=== PATIENT | female | born 1955 | race Caucasian/White ===

== ENCOUNTER → 2016-09-28 | Outpatient (CLI) | payer BC ==
--- NOTE | 2016-09-29 09:40 | MM ---
Reason for exam: screening (asymptomatic). Last mammogram was performed 1 year ago. History: Patient is postmenopausal. Benign stereotactic core biopsy of the right breast, March 10, 2002. Core biopsy of the right breast. Excisional biopsy of the left breast. Excisional biopsy of the right breast. Physical Findings: A clinical breast exam by your physician is recommended on an annual basis and results should be correlated with mammographic findings. MG 3D Screening Mammo W/Cad Bilateral CC and MLO view(s) were taken. Prior study comparison: September 17, 2015, bilateral MG 3d screening mammo w/cad. August 20, 2014, bilateral MG screening mammo w CAD. The breast tissue is heterogeneously dense. This may lower the sensitivity of mammography. Finding: There are new grouped/clustered calcifications in the lower outer quadrant of the right breast. ASSESSMENT: Incomplete: need additional imaging evaluation, BI-RAD 0 RECOMMENDATION: Special view mammogram of the right breast. [facility] will attempt to contact patient to return for supplemental views.
== END | disposition home or self-care (01) ==
LOC: RADMAMWWP 07:54
PROVIDERS: ATTEND Internal Medicine Geriatric Medicine
DX: Z12.31 Encounter for screening mammogram for malignant neoplasm of breast (principal)
CPT/HCPCS: 77063; G0202

== ENCOUNTER → 2016-10-06 | Outpatient (CLI) | payer BC ==
--- NOTE | 2016-10-06 14:33 | MM ---
Reason for exam: additional evaluation requested from abnormal screening. Last mammogram was performed less than 1 month ago. History: Patient is postmenopausal. Benign stereotactic core biopsy of the right breast, March 10, 2002. Core biopsy of the right breast. Excisional biopsy of the left breast. Excisional biopsy of the right breast. Physical Findings: Nurse did not find any significant physical abnormalities on exam. MG 3D Work Up W/Cad RT LM, spot compression CC, and spot compression LM view(s) were taken of the right breast. Prior study comparison: September 28, 2016, bilateral MG 3d screening mammo w/cad. September 17, 2015, bilateral MG 3d screening mammo w/cad. August 20, 2014, bilateral MG screening mammo w CAD. The breast tissue is heterogeneously dense. This may lower the sensitivity of mammography. Finding: There are persistent, new grouped/clustered calcifications in the lower outer quadrant of the right breast. These results were verbally communicated with the patient and result sheet given to the patient on 10/06/16. ASSESSMENT: Suspicious, BI-RAD 4 RECOMMENDATION: Stereotactic core biopsy of the right breast. Called Dr. Nino with mammographic findings and has scheduled an appointment for the patient for 10/10/16 at 4:[address] Vazquez. PRELIMINARY REPORT CALLED AND FAXED TO DR. VAZQUEZ ON 10/06/16 AT 300/TP.
== END | disposition home or self-care (01) ==
LOC: RADMAMWWP 13:27
PROVIDERS: ATTEND Internal Medicine Geriatric Medicine
DX: R92.8 Other abnormal and inconclusive findings on diagnostic imaging of breast (principal)
CPT/HCPCS: G0206; G0279

== ENCOUNTER → 2016-10-17 | Day surgery (SDC) | payer BC ==
[~2016-10-17] MED LIST: BACITRACIN OINT 1 EACH PACKET TOPICAL ONE; LIDOCAINE 1% INJ 10MG/ML (20 ML MDV) ONE; LIDOCAINE 1%-EPI 1:100,000 20 ML VIAL ONE; SODIUM BICARB 4% 5 ML VIAL (0.48 MEQ/ML) ONE
--- NOTE | 2016-10-17 15:30 | MM ---
EXAMINATION TYPE: MG stereo VAD BX RT DATE OF EXAM: 10/17/2016 3:08 PM COMPARISON: Prior mammogram October 06, 2016 and older mammograms. CLINICAL HISTORY: Abnormal mammogram, suspicious group of calcifications TECHNIQUE: Stereotactic guided core biopsy of right breast with clip placement. FINDINGS: The procedure of stereotactic guided core biopsy was explained to the patient. Benefits, alternatives, and risks were discussed. An informed consent was then obtained. The shortness pathway for biopsy was chosen. Shortness pathway was inferior approach. I performed the localization then performed the procedure . Overlying skin is cleansed with sterile alcohol. Lidocaine is used as anesthetic into the skin and superficial tissue. Lidocaine with epinephrine is used as anesthetic into the deeper tissue A vacuum assisted biopsy gun was used to obtain multiple core samples. The patient tolerated the procedure well without any immediate complication. The patient was kept in the radiology department for short stay after the procedure and then discharged home in stable condition. Targeted calcifications are identified in specimen mammogram. Post biopsy mammogram shows the clip to appear in satisfactory position relative to the targeted area of concern on the preprocedure images. IMPRESSION: SUCCESSFUL, UNCOMPLICATED STEREOTACTIC GUIDED CORE BIOPSY OF AREA OF CONCERN IN THE RIGHT BREAST, FULL PATHOLOGY RESULTS TO FOLLOW. Low to intermediate index of suspicion noted at time of procedure. Pathology Results: High Risk BREAST, RIGHT, CORE BIOPSY: HYALINIZED CALCIFIED FIBROADENOMA/FIBROADENOMATOID HYPERPLASIA AND FIBROCYSTIC CHANGES. FEATURES SUSPICIOUS FOR FOCAL ATYPICAL LOBULAR HYPERPLASIA (ALH), SEE NOTE. Recommendation Surgical consult of the right breast. CHUCKIE
== END ==
LOC: RADMAMWWP 13:44
PROVIDERS: ATTEND Surgery
DX: D24.1 Benign neoplasm of right breast (principal); N64.89 Other specified disorders of breast; R92.8 Other abnormal and inconclusive findings on diagnostic imaging of breast; Z88.0 Allergy status to penicillin; Z88.2 Allergy status to sulfonamides
CPT/HCPCS: 88305; 19081; A4648; J2001

== ENCOUNTER 2016-11-06 07:59 | Day surgery (SDC) | payer BC ==
[2016-11-01 09:08] VITALS: BMI 23.5
[~2016-11-06 07:59] MED LIST changes: -BACITRACIN OINT 1 EACH PACKET TOPICAL ONE; +DEXAMETHASONE SOD PHOSPHATE 10 MG/ML 1 ML VIAL IV ONE; +HYDROmorphone 1 MG/ML 1 ML SYRINGE IVP PRN; +LACTATED RINGERS 1,000 ML IV SCH; +LIDOCAINE 1% 20 ML VIAL (10MG/ML) FOR IV START INTRADERMA PRN; -LIDOCAINE 1% INJ 10MG/ML (20 ML MDV) ONE; -LIDOCAINE 1%-EPI 1:100,000 20 ML VIAL ONE; +MIDAZOLAM 2 MG/2 ML VIAL IV PRN; +ONDANSETRON 4 MG/2 ML VIAL IVP ONE; +Pre Op ABX Message 1 EACH MISC MISCELLANE ONE; +SCOPOLAMINE 1.5MG/72HR PATCH TRANSDERM ONE; -SODIUM BICARB 4% 5 ML VIAL (0.48 MEQ/ML) ONE
[2016-11-06 08:24] VITALS: RESP 16
[2016-11-06] MEDS ORDERED: LIDOCAINE 1% 20 ML VIAL (10MG/ML) FOR IV START INTRADERMA ONE (08:33)
[2016-11-06] MEDS ORDERED: LIDOCAINE 1% INJ 10MG/ML (20 ML MDV) SQ ONE (09:21)
[2016-11-06] MEDS ORDERED: SODIUM BICARB 4% 5 ML VIAL (0.48 MEQ/ML) MISCELLANE ONE (09:21)
[2016-11-06 09:45] VITALS: TEMP 98.3
[2016-11-06] MEDS ORDERED: KETAMINE 10 MG/ML 20 ML VIAL ONE (11:59)
[2016-11-06] MEDS ORDERED: MIDAZOLAM 2 MG/2 ML VIAL ONE (11:59)
[2016-11-06] MEDS ORDERED: fentaNYL (PF) 50 MCG/ML 2 ML AMP ONE (11:59)
[2016-11-06] MEDS ORDERED: PROPOFOL 10 MG/ML 20 ML VIAL IV ONE (11:59)
[2016-11-06] MEDS ORDERED: LIDOCAINE 1% INJ 10MG/ML (20 ML MDV) ONE (11:59)
[2016-11-06] MEDS ORDERED: BUPIVACAINE (PF) 0.5% 30 ML VIAL SQ ONE ×2 (12:13)
[2016-11-06] MEDS ORDERED: LACTATED RINGERS 1,000 ML IV ONE ×2 (12:30)
--- NOTE | 2016-11-06 12:57 | P.OP ---
Date of Procedure: 11/06/16 Preoperative Diagnosis: Atypical Lobular Hyperplasia Right Breast Postoperative Diagnosis: Atypical lobular hyperplasia of the right breast Procedure(s) Performed: Right breast biopsy with needle localization Anesthesia: MAC, local Surgeon: Anselmo Duncan Estimated Blood Loss (ml): 20 Pathology: other (Rt breast bx) Condition: stable Disposition: same day Indications for Procedure: The patient is a 61-year-old white female was found to have a mammographic abnormality in the right breast in the lower outer quadrant. Stereotactic core biopsy revealed this to be a hyalinized calcified fibroadenoma with the features suspicious for focal atypical lobular hyperplasia confirmed the by evaluation at the tertiary center. Wide excision of this area with needle localization was recommended and informed consent was obtained Operative Findings: With the patient supine the right breast and chest wall were prepped with Betadine and draped. Local anesthetic Marcaine 0.5% plain was infiltrated just above the wire insertion site around the 5 o'clock position in the transverse incision was made. The wire was delivered out of the wound. Wide excision of the breast tissue were then accomplished around the wire and. The wound was irrigated hemostasis secured with 4-0 Vicryl suture ligature and the electrocautery. The field was dry at the end of procedure after being irrigated. Closure was then achieved with interrupted 4-0 Vicryl for the subcutaneous tissues and 4-0 Monocryl subcuticular suture and Steri-Strips for the skin. Dressing was applied. All counts were correct. Description of Procedure: Specimen mammography confirmed the abnormality within the specimen. Procedure otherwise as described above.
[2016-11-06 13:32] VITALS: BP 119/59; PULSE 50
--- NOTE | 2016-11-06 15:41 | MM ---
EXAMINATION TYPE: MG pre op needle loc RT, MG surgical specimen RT DATE OF EXAM: 11/06/2016 10:07 AM COMPARISON: NONE CLINICAL HISTORY: High risk lesion TECHNIQUE: Needle localization with wire placement and surgical excision of area of concern in the right breast. FINDINGS: The procedure of needle localization with wire placement and than surgical excision was explained to the patient. Benefits, alternatives, and risks were discussed. An informed consent was then obtained. The shortest pathway for procedure was chosen. The overlying skin was prepped and draped in usual sterile fashion. Lidocaine buffered with bicarbonate was used as anesthetic into the skin and subcutaneous tissue up to the level of area of concern. A 7 cm needle was used. Subsequent 90 degrees mammogram show the needle to be in satisfactory position relative to the targeted area. At this point, wire was placed and the needle was withdrawn. The wire was fixed to patient's skin. Images were marked for surgeon. The patient tolerated the procedure well without any immediate complication. The patient was kept in the radiology department for short stay after the procedure and then taken to surgery for surgical excision. Gated microclip and wire are identified in specimen mammogram. The patient was kept in hospital for short stay after the procedure and then discharged home in stable condition. IMPRESSION: Successful, uncomplicated needle localization with wire placement and surgical excision of microclip in the right breast, full pathology results to follow. Pathology Results: Benign BREAST, RIGHT, WIRE GUIDED LOCALIZATION AND RESECTION: BIOPSY SITE CHANGE. FIBROCYSTIC CHANGE (STROMAL FIBROSIS, CYST FORMATION, ADENOSIS AND DUCT HYPERPLASIA). Recommendation Follow up mammogram of the right breast in 6 months. CHUCKIE
== END 2016-11-06 13:52 | disposition home or self-care (01) ==
LOC: OR 07:59
PROVIDERS: ATTEND Surgery
DX: N60.11 Diffuse cystic mastopathy of right breast (principal); N60.21 Fibroadenosis of right breast; N60.91 Unspecified benign mammary dysplasia of right breast; R92.8 Other abnormal and inconclusive findings on diagnostic imaging of breast; D24.1 Benign neoplasm of right breast; E07.9 Disorder of thyroid, unspecified; G25.81 Restless legs syndrome; F32.9 Major depressive disorder, single episode, unspecified; Z79.891 Long term (current) use of opiate analgesic; Z79.899 Other long term (current) drug therapy; Z88.0 Allergy status to penicillin; Z88.2 Allergy status to sulfonamides
CPT/HCPCS: 19125; 88342; 88307; 88341; 76098; 19281; J2250; J1100; J2405; J2001; J3010; J2704

== ENCOUNTER → 2017-05-17 | Outpatient (CLI) | payer BC ==
--- NOTE | 2017-05-17 10:28 | MM ---
Reason for exam: screening (asymptomatic). Last mammogram was performed 7 months ago. History: Patient is postmenopausal and has history of high-risk lesion on a previous biopsy at age 61. Family history of breast cancer in maternal cousin at age 60. Benign MG pre op needle loc RT of the right breast, November 06, 2016. High risk MG stereo VAD BX RT of the right breast, October 17, 2016. Benign stereotactic core biopsy of the right breast, March 10, 2002. Core biopsy of the right breast. Excisional biopsy of the left breast. Excisional biopsy of the right breast. Physical Findings: A clinical breast exam by your physician is recommended on an annual basis and results should be correlated with mammographic findings. MG 3D Diag Mammo W/Cad RT CC, MLO, and ML view(s) were taken of the right breast. Prior study comparison: October 06, 2016, right breast MG 3d work up w/cad RT. September 28, 2016, bilateral MG 3d screening mammo w/cad. The breast tissue is heterogeneously dense. This may lower the sensitivity of mammography. Finding: Architectural distortion in the lower quadrant of the right breast consistent with internal excisional biopsy. Previous mammotome biopsy in the right breast. There is no discrete abnormality. These results were verbally communicated with the patient and result sheet given to the patient on 05/17/17. ASSESSMENT: Benign, BI-RAD 2 RECOMMENDATION: Follow-up diagnostic mammogram of both breasts in 5 months. Back on schedule for September 2017.
== END | disposition home or self-care (01) ==
LOC: RADMAMWWP 08:44
PROVIDERS: ATTEND Surgery
DX: R92.8 Other abnormal and inconclusive findings on diagnostic imaging of breast (principal)
CPT/HCPCS: G0206; G0279

== ENCOUNTER → 2017-10-23 | Outpatient (CLI) | payer BC ==
--- NOTE | 2017-10-23 16:27 | BD ---
EXAMINATION TYPE: MG DEXA axial skeleton. DATE OF EXAM: 10/23/2017 COMPARISON: 08/20/2014 CLINICAL HISTORY: 62-year-old female age-related osteoporosis Height: 66 IN Weight: 151 LBS FRAX RISK QUESTIONS: Alcohol (3 or more units per day): NO Family History (Parent hip fracture): NO Glucocorticoids (More than 3mos): NO (Ex: prednisone, prednisolone, methylprednisolone, dexamethasone, and hydrocortisone). History of Fracture in Adulthood: NO Secondary Osteoporosis: 1. Type 1 Diabetes: NO 2. Hyperthyroidism: NO 3. Menopause before 45: NO AGE 49 4. Malnutrition: NO 5. Chronic liver disease: NO Rheumatoid Arthritis: NO Current Tobacco Use: NO RISK FACTORS HISTORY OF: Surgery to Hip(left): YES When: 2013 Family History of Osteoporosis: YES MOTHER Active: YES Postmenopausal woman: AGE 49 MEDICATIONS: Thyroid Medications: YES Which medication: Levothyroxine How Lon + YEARS Additional Medications: LEVOTHYROXINE, ZOLOFT, MULTI VIT, VIT B, RESTLESS LEGS MEDICINE EXAM MEASUREMENTS: Bone mineral densitometry was performed using the [employer] System. PT HAS A BELLY BUTTON RING THAT THE SKIN HAS GROWN AROUND. PT CANNOT REMOVE IT. Bone mineral density as measured about the Lumbar spine is: ----- L1-L4(G/cm2): 1.166 T Score Values are as follows: ----- L2: -1.1 ----- L3: 0.1 ----- L4: 0.1 ----- L1-L4: -0.1 Bone mineral density has: Decreased -0.4% since study of: 08/20/2014 PT HAD LEFT HIP REPLACEMENT IN 2013 Bone mineral density about the R hip (g/cm2): 0.851 T Score values are as follows: -----R Neck: -1.3 -----R Total: -0.8 Bone mineral density has: Increased 2.8% since study of: 08/20/2014 IMPRESSION: Osteopenia (T Score between -2.5 and -1). There is slightly increased risk of fracture and the patient may be considered for treatment. Re-Screen 2-5 years. NOTE: T-SCORE=SD OF THE YOUNG ADULT MEAN.
--- NOTE | 2017-10-24 10:00 | MM ---
Reason for exam: screening (asymptomatic). Last mammogram was performed 5 months ago. History: Patient is postmenopausal and has history of high-risk lesion on a previous biopsy at age 61. Family history of breast cancer in maternal cousin at age 60. Benign MG pre op needle loc RT of the right breast, November 06, 2016. High risk MG stereo VAD BX RT of the right breast, October 17, 2016. Benign stereotactic core biopsy of the right breast, March 10, 2002. Core biopsy of the right breast. Excisional biopsy of the left breast. Excisional biopsy of the right breast. Physical Findings: A clinical breast exam by your physician is recommended on an annual basis and results should be correlated with mammographic findings. MG 3D Screening Mammo W/Cad Bilateral CC and MLO view(s) were taken. Prior study comparison: May 17, 2017, right breast MG 3d diag mammo w/cad RT. October 06, 2016, right breast MG 3d work up w/cad RT. The breast tissue is heterogeneously dense. This may lower the sensitivity of mammography. Previous mammotome biopsy in the right breast. There is no discrete abnormality. ASSESSMENT: Benign, BI-RAD 2 RECOMMENDATION: Routine screening mammogram of both breasts in 1 year.
== END | disposition home or self-care (01) ==
LOC: RADMAMWWP 08:02
PROVIDERS: ATTEND Nurse Practitioner Family
DX: Z12.31 Encounter for screening mammogram for malignant neoplasm of breast (principal); M85.80 Other specified disorders of bone density and structure, unspecified site
CPT/HCPCS: 77063; 77067; 77080

== ENCOUNTER → 2018-10-24 | Outpatient (CLI) | payer BC ==
--- NOTE | 2018-10-25 10:56 | MM ---
Reason for exam: screening (asymptomatic). Last mammogram was performed 1 year ago. History: Patient is postmenopausal and has history of high-risk lesion on a previous biopsy at age 61. Family history of breast cancer in maternal cousin at age 60. Benign MG pre op needle loc RT of the right breast, November 06, 2016. High risk MG stereo VAD BX RT of the right breast, October 17, 2016. Benign stereotactic core biopsy of the right breast, March 10, 2002. Core biopsy of the right breast. Excisional biopsy of the left breast. Excisional biopsy of the right breast. Physical Findings: A clinical breast exam by your physician is recommended on an annual basis and results should be correlated with mammographic findings. MG 3D Screening Mammo W/Cad Bilateral CC and MLO view(s) were taken. Prior study comparison: October 23, 2017, bilateral MG 3d screening mammo w/cad. May 17, 2017, right breast MG 3d diag mammo w/cad RT. The breast tissue is heterogeneously dense. This may lower the sensitivity of mammography. No suspicious abnormality. Right biopsy marker noted. No significant changes when compared with prior studies. ASSESSMENT: Negative, BI-RAD 1 RECOMMENDATION: Routine screening mammogram of both breasts in 1 year.
== END | disposition home or self-care (01) ==
LOC: RADMAMWWP 08:01
PROVIDERS: ATTEND Internal Medicine Geriatric Medicine
DX: Z12.31 Encounter for screening mammogram for malignant neoplasm of breast (principal)
CPT/HCPCS: 77063; 77067

== ENCOUNTER 2019-04-15 12:17 | Emergency (ER) | payer BC ==
[2019-04-15] MEDS ORDERED: FAMOTIDINE 20 MG/2 ML VIAL IV STA (12:24)
[2019-04-15] MEDS ORDERED: SODIUM CHLORIDE 0.9% 1,000 ML IV ONE (12:24)
[2019-04-15] MEDS ORDERED: methylPREDNISolone SOD SUCCI 125 MG/2 ML VIAL IV STA (12:24)
[2019-04-15] MEDS ORDERED: diphenhydrAMINE 50 MG/ML 1 ML VIAL IVP STA (12:24)
--- NOTE | 2019-04-15 12:40 | ED ---
Allergic Reaction HPI - General Chief complaint: Allergic Reaction Stated complaint: multiple bee stings Time Seen by Provider: 04/15/19 12:23 Source: patient, RN notes reviewed Mode of arrival: ambulatory Limitations: no limitations - History of Present Illness Initial Comments: 63-year-old female presents emergency Department chief complaint ALLERGIC reaction. Patient states she stepped on a ground be hypertensive and states that she was stung multiple times. Patient states she felt rushed of 1 sensation over states that she feels some abnormal sensation in her throat and feels slightly short of breath. Patient denies any diarrhea ALLERGIC reactions of this nature. Denies taking any medications other than putting topical Benadryl on. - Related Data Home Medications Medication Instructions Recorded Confirmed Levothyroxine Sodium [Synthroid] 100 mcg PO DAILY 05/20/14 04/15/19 Sertraline HCl [Zoloft] 200 mg PO QAM 05/20/14 04/15/19 rOPINIRole HCL [Requip] 0.5 mg PO HS 08/25/16 04/15/19 Calcium Carbonate [Calcium] 600 mg PO DAILY 04/15/19 04/15/19 Cholecalciferol [Vitamin D3 (25 1,000 unit PO DAILY 04/15/19 04/15/19 Mcg = 1000 Iu)] L.acidoph,Paracasei, B.lactis 1 cap PO DAILY 04/15/19 04/15/19 [Probiotic] Multivitamins, Thera [Multivitamin 1 tab PO DAILY 04/15/19 04/15/19 (formulary)] Vit A/Vit C/Vit E/Zinc/Copper 1 cap PO DAILY 04/15/19 04/15/19 [ICAPS SOFTGEL] Vitamin B Complex 1 cap PO DAILY 04/15/19 04/15/19 Allergies Allergy/AdvReac Type Severity Reaction Status Date / Time Penicillins Allergy Dyspnea Verified 04/15/19 12:48 Sulfa (Sulfonamide Allergy Dyspnea Verified 04/15/19 12:48 Antibiotics) Review of Systems ROS Statement: Those systems with pertinent positive or pertinent negative responses have been documented in the HPI. ROS Other: All systems not noted in ROS Statement are negative. Past Medical History Past Medical History: Asthma, Thyroid Disorder History of Any Multi-Drug Resistant Organisms: None Reported Past Surgical History: Breast Surgery, Joint Replacement Additional Past Surgical History / Comment(s): left hip replacement; biopsy rt breast, colonoscopy Past Anesthesia/Blood Transfusion Reactions: Postoperative Nausea & Vomiting (PONV) Past Psychological History: Depression Smoking Status: Never smoker - Past Family History Mother Family Medical History: Deep Vein Thrombosis (DVT) General Exam Limitations: no limitations General appearance: alert, in no apparent distress Head exam: Present: atraumatic, normocephalic, normal inspection Eye exam: Present: normal appearance, PERRL, EOMI. Absent: scleral icterus, conjunctival injection, periorbital swelling ENT exam: Present: normal exam, normal oropharynx, mucous membranes moist, TM's normal bilaterally, normal external ear exam Neck exam: Present: normal inspection, full ROM. Absent: tenderness, meningismus, lymphadenopathy Respiratory exam: Present: normal lung sounds bilaterally. Absent: respiratory distress, wheezes, rales, rhonchi, stridor Cardiovascular Exam: Present: regular rate, normal rhythm, normal heart sounds. Absent: systolic murmur, diastolic murmur, rubs, gallop, clicks GI/Abdominal exam: Present: soft, normal bowel sounds. Absent: distended, tenderness, guarding, rebound, rigid Neurological exam: Present: alert, oriented X3, CN II-XII intact Skin exam: Present: warm, dry, intact, normal color. Absent: rash Course Vital Signs 04/15/19 04/15/19 04/15/19 12:19 12:38 13:20 Temperature 97.4 F L Pulse Rate 88 76 82 Respiratory 16 18 20 Rate Blood Pressure 154/76 149/67 O2 Sat by Pulse 97 93 L 95 Oximetry 04/15/19 04/15/19 04/15/19 13:24 13:50 14:00 Temperature Pulse Rate 61 58 L Respiratory 20 Rate Blood Pressure O2 Sat by Pulse Oximetry 04/15/19 14:03 Temperature Pulse Rate 61 Respiratory 18 Rate Blood Pressure 112/60 O2 Sat by Pulse 97 Oximetry - Reevaluation(s) Reevaluation #1: 04/15/19 14:43 Patient reevaluated resting comfortably with no signs or symptoms ALLERGIC reaction or difficult to. No deformity swelling. Medical Decision Making - Medical Decision Making 63-year-old female presented from for ALLERGIC reaction. Patient had multiple bee stings. Patient was given site metal Benadryl Pepcid and DuoNeb treatment. Symptoms have resolved. She has been observed for 2 and half hours emergency from with no return of symptoms. Patient has prednisone at home she is advised to continue Benadryl and return for any worsening symptoms. Disposition Clinical Impression: Allergic reaction to insect sting Disposition: HOME SELF-CARE Condition: Stable Instructions (If sedation given, give patient instructions): General Allergic Reaction (ED) Additional Instructions: Please return to the Emergency Department if symptoms worsen or any other concerns. Continue Benadryl every 6 hours as directed. Is patient prescribed a controlled substance at d/c from ED?: No Referrals: Mk Nino MD [Primary Care Provider] - 1-2 days Time of Disposition: 14:44
[2019-04-15] MEDS ORDERED: IPRATROPIUM-ALBUTEROL 3 ML NEB INHALATION STA (13:19)
[2019-04-15] MEDS ORDERED: ONDANSETRON 4 MG/2 ML VIAL IVP STA (13:50)
[2019-04-15 14:05] VITALS: RESP 18
[2019-04-15 15:26] VITALS: BP 127/68; PULSE 76; TEMP 98.2
== END 2019-04-15 15:20 | disposition home or self-care (01) ==
LOC: EC 12:17
DX: T63.441A Toxic effect of venom of bees, accidental (unintentional), initial encounter (principal); F32.9 Major depressive disorder, single episode, unspecified; E07.9 Disorder of thyroid, unspecified; Z79.890 Hormone replacement therapy; Z79.899 Other long term (current) drug therapy; Z88.0 Allergy status to penicillin; Z88.2 Allergy status to sulfonamides; Z96.642 Presence of left artificial hip joint
CPT/HCPCS: 94640; 99283; 96374; 96375 ×3; 96361; J1200; J2930; J2405

== ENCOUNTER → 2019-10-30 | Outpatient (CLI) | payer BC ==
--- NOTE | 2019-10-31 14:20 | MM ---
Reason for exam: screening (asymptomatic). Last mammogram was performed 1 year ago. History: Patient is postmenopausal and has history of high-risk lesion on a previous biopsy at age 61. Family history of breast cancer in maternal cousin at age 60. Benign MG pre op needle loc RT of the right breast, November 06, 2016. High risk MG stereo VAD BX RT of the right breast, October 17, 2016. Benign stereotactic core biopsy of the right breast, March 10, 2002. Core biopsy of the right breast. Excisional biopsy of the left breast. Excisional biopsy of the right breast. Physical Findings: A clinical breast exam by your physician is recommended on an annual basis and results should be correlated with mammographic findings. MG 3D Screening Mammo W/Cad Bilateral CC and MLO view(s) were taken. XCCL view(s) were taken of the left breast. Prior study comparison: October 24, 2018, bilateral MG 3d screening mammo w/cad. October 23, 2017, bilateral MG 3d screening mammo w/cad. The breast tissue is heterogeneously dense. This may lower the sensitivity of mammography. No suspicious abnormality. Right biopsy marker noted. No significant changes when compared with prior studies. ASSESSMENT: Negative, BI-RAD 1 RECOMMENDATION: Routine screening mammogram of both breasts in 1 year.
== END | disposition home or self-care (01) ==
LOC: RADMAMWWP 09:50
PROVIDERS: ATTEND Internal Medicine Geriatric Medicine
DX: Z12.31 Encounter for screening mammogram for malignant neoplasm of breast (principal)
CPT/HCPCS: 77063; 77067

== ENCOUNTER 2020-04-26 16:29 | Emergency (ER) | payer BC ==
[2020-04-26] MEDS ORDERED: SODIUM CHLORIDE 0.9% 1,000 ML IV STA (17:41)
[2020-04-26] MEDS ORDERED: FAMOTIDINE 20 MG/2 ML VIAL IV STA (17:42)
[2020-04-26 18:21] LABS: Basophils % (A) 1 %; Eosinophils # (A) 0.3 k/uL (0-0.7); Eosinophils % (A) 3 %; HCT 40.8 % (34.0-46.0); Lymphocytes # (A) 2.2 k/uL (1.0-4.8); Lymphocytes % (A) 30 %; MCH 28.8 pg (25.0-35.0); MCHC 31.9 g/dL (31.0-37.0); MCV 90.3 fL (80.0-100.0); Mean Platelet Volume 7.1; Monocytes # (A) 0.4 k/uL (0-1.0); Monocytes % (A) 6 %; Neutrophils # (A) 4.3 k/uL (1.3-7.7); Neutrophils % (A) 58 %; Platelet Count 207 k/uL (150-450); RBC 4.52 m/uL (3.80-5.40); RDW 13.5 % (11.5-15.5); WBC 7.3 k/uL (3.8-10.6)
[2020-04-26 18:38] LABS: ALT 46 U/L (4-34); AST 45 U/L (14-36); African American GFR (CKD) >90 (>60 ml/min/1.73 sqM); Alkaline Phosphatase 174 U/L (38-126); Amylase 51 U/L (30-110); Anion Gap 4 mmol/L; Blood Urea Nitrogen 23 mg/dL (7-17); Calcium 9.3 mg/dL (8.4-10.2); Carbon Dioxide 28 mmol/L (22-30); Chloride 104 mmol/L (98-107); Glucose 78 mg/dL (74-99); Non-African American GFR(CKD) >90 (>60 ml/min/1.73 sqM); Potassium 3.9 mmol/L (3.5-5.1); Sodium 136 mmol/L (137-145); Total Bilirubin 0.9 mg/dL (0.2-1.3); Total Protein 6.8 g/dL (6.3-8.2)
[2020-04-26 18:52] LABS: Appearance,Urine Clear (Clear); Bilirubin,Urine Negative (Negative); Blood,Urine Negative (Negative); Color,Urine Yellow; Glucose,Urine (UA) Negative (Negative); Ketones,Urine Negative (Negative); Leukocyte Esterase,Urine Large (Negative); Mucus,Urine Occasional /hpf; Nitrite,Urine Negative (Negative); PH, Urine 5.5 (5.0-8.0); Protein,Urine Negative (Negative); RBC,Urine 3 /hpf (0-5); Specific Gravity,Urine 1.028 (1.001-1.035); Squamous Epithelial Cell,Urine 1 /hpf (0-4); Urobilinogen,Urine <2.0 mg/dL (<2.0); WBC,Urine 17 /hpf (0-5)
--- NOTE | 2020-04-26 19:01 | XR ---
EXAMINATION TYPE: XR chest 2V DATE OF EXAM: 04/26/2020 CLINICAL HISTORY: Shortness of breath. Abdominal pain. TECHNIQUE: Frontal and lateral views of the chest are obtained. COMPARISON: 08/25/2016 chest radiograph FINDINGS: Redemonstrated mild tenting of the left hemidiaphragm. The cardiomediastinal silhouette is within normal limits for size. Pulmonary vasculature is normal. There is no focal air space opacity, pleural effusion, or pneumothorax seen. The osseous structures are intact. IMPRESSION: No acute cardiopulmonary process.
--- NOTE | 2020-04-26 19:03 | XR ---
EXAMINATION TYPE: XR KUB DATE OF EXAM: 04/26/2020 6:20 PM CLINICAL HISTORY: Abdominal pain. Shortness of breath. TECHNIQUE: Supine and upright images of the abdomen and pelvis were obtained COMPARISON: None. FINDINGS: Round metallic density over the region of the umbilicus. Scattered gas is seen in non-diste nded small bowel loops. Gas and fecal material is seen in non-distended colon. There is no visceromeg ann, pneumoperitoneum, or abnormal calcification appreciated. The lung bases are clear. The osseous s tructures are intact. Degenerative changes of the spine. Incomplete visualization of left hip prosthe sis. IMPRESSION: 1. Nonspecific bowel gas pattern. 2. Round metallic density over the region of the umbilicus, likely represents umbilical piercing. Cor relate clinically.
--- NOTE | 2020-04-26 19:27 | ED ---
General Adult HPI - General Chief complaint: Shortness of Breath Stated complaint: SOB Time Seen by Provider: 04/26/20 16:57 Source: patient Mode of arrival: ambulatory Limitations: no limitations - History of Present Illness Initial comments: 64-year-old female patient presents to the emergency department today for evaluation of abdominal bloating and discomfort. Patient states she feels full like is difficult to breathe. She denies any nausea or vomiting. States she feels full and unable to eat. Denies constipation or diarrhea. Denies fever or chills. Denies history of abdominal surgery. Patient denies any recent rash, cough, shortness of breath, chest pain, back pain, numbness, tingling, dizziness, weakness, hematuria, dysuria, urinary urgency, urinary frequency, headache, visual changes, or any other complaints. - Related Data Home Medications Medication Instructions Recorded Confirmed Levothyroxine Sodium [Synthroid] 100 mcg PO DAILY 05/20/14 04/26/20 rOPINIRole HCL [Requip] 1 mg PO HS 08/25/16 04/26/20 L.acidoph,Paracasei, B.lactis 1 cap PO DAILY 04/15/19 04/26/20 [Probiotic] Vitamin B Complex 1 cap PO DAILY 04/15/19 04/26/20 Atorvastatin Calcium [Lipitor] 10 mg PO DAILY 04/26/20 04/26/20 DULoxetine HCL [Cymbalta] 120 mg PO DAILY 04/26/20 04/26/20 EPINEPHrine (Auto Inject) [Epipen] 0.3 mg IM ONCE PRN 04/26/20 04/26/20 Ergocalciferol [Vitamin D2] 50,000 unit PO Q7D 04/26/20 04/26/20 Ubidecarenone [Co Q-10] 100 mg PO DAILY 04/26/20 04/26/20 clonazePAM [KlonoPIN] 0.5 mg PO HS 04/26/20 04/26/20 Previous Rx's Medication Instructions Recorded Famotidine [Pepcid] 20 mg PO HS #30 tablet 04/26/20 Allergies Allergy/AdvReac Type Severity Reaction Status Date / Time Penicillins Allergy Dyspnea Verified 04/26/20 16:50 Sulfa (Sulfonamide Allergy Dyspnea Verified 04/26/20 16:50 Antibiotics) Review of Systems ROS Statement: Those systems with pertinent positive or pertinent negative responses have been documented in the HPI. ROS Other: All systems not noted in ROS Statement are negative. Past Medical History Past Medical History: Asthma, Thyroid Disorder History of Any Multi-Drug Resistant Organisms: None Reported Past Surgical History: Breast Surgery, Joint Replacement Additional Past Surgical History / Comment(s): left hip replacement; biopsy rt breast, colonoscopy Past Anesthesia/Blood Transfusion Reactions: Postoperative Nausea & Vomiting (PONV) Past Psychological History: Depression Past Alcohol Use History: None Reported Past Drug Use History: None Reported - Past Family History Mother Family Medical History: Deep Vein Thrombosis (DVT) General Exam Limitations: no limitations General appearance: alert, in no apparent distress, other (This is a well- developed, well-nourished adult female patient in no acute distress. Vital signs upon presentation are temperature 98.0F, pulse 82, respirations 18, blood pressure 142/71, pulse ox 98% on room air.) Eye exam: Present: normal appearance, PERRL, EOMI. Absent: scleral icterus, conjunctival injection, periorbital swelling Respiratory exam: Present: normal lung sounds bilaterally. Absent: respiratory distress, wheezes, rales, rhonchi, stridor Cardiovascular Exam: Present: regular rate, normal rhythm, normal heart sounds. Absent: systolic murmur, diastolic murmur, rubs, gallop, clicks GI/Abdominal exam: Present: soft, tenderness (Midepigastric), normal bowel sounds. Absent: distended, guarding, rebound, rigid Neurological exam: Present: alert, oriented X3, CN II-XII intact Psychiatric exam: Present: normal affect, normal mood Skin exam: Present: warm, dry, intact, normal color. Absent: rash Course Vital Signs 04/26/20 04/26/20 04/26/20 16:46 17:50 18:34 Temperature 98.0 F Pulse Rate 82 70 Respiratory 18 16 16 Rate Blood Pressure 142/71 134/78 O2 Sat by Pulse 98 98 Oximetry 04/26/20 04/26/20 22:15 22:31 Temperature 97.6 F Pulse Rate 60 Respiratory 18 Rate Blood Pressure 151/65 O2 Sat by Pulse 100 Oximetry EKG Findings - EKG Comments: EKG Findings:: EKG obtained at 1834 shows normal sinus rhythm with a ventricular rate of 65, AL interval 160, QRS duration 82, QT 406, QTC 422. No evidence of ST elevation or depression. Medical Decision Making - Medical Decision Making 64-year-old female patient presents to the emergency department today for evaluation of abdominal bloating and pressure over the upper abdomen. Patient denies chest pain but does report some shortness of breath with this. Physical examination did reveal upper abdominal tenderness. Labs reviewed and did reveal mildly elevated liver enzymes and elevated alk phos. KUB was negative. Chest x-ray was negative. Ultrasound of the right upper quadrant did reveal positive sonographic Munoz sign but negative otherwise. Upon reevaluation patient does report improvement of symptoms. We will discharge with instructions to follow- up with her primary care physician or GI specialist for HIDA scan. She is instructed to return to the emergency department immediately for any new, worsening, or concerning symptoms per she verbalizes understanding and agrees with this plan. - Lab Data Result diagrams: 04/26/20 18:07 04/26/20 18:07 Lab Results 04/26/20 04/26/20 04/26/20 Range/Units 18:07 18:07 18:07 WBC 7.3 (3.8-10.6) k/uL RBC 4.52 (3.80-5.40) m/uL Hgb 13.0 (11.4-16.0) gm/dL Hct 40.8 (34.0-46.0) % MCV 90.3 (80.0-100.0) fL MCH 28.8 (25.0-35.0) pg MCHC 31.9 (31.0-37.0) g/dL RDW 13.5 (11.5-15.5) % Plt Count 207 (150-450) k/uL Neutrophils % 58 % Lymphocytes % 30 % Monocytes % 6 % Eosinophils % 3 % Basophils % 1 % Neutrophils # 4.3 (1.3-7.7) k/uL Lymphocytes # 2.2 (1.0-4.8) k/uL Monocytes # 0.4 (0-1.0) k/uL Eosinophils # 0.3 (0-0.7) k/uL Basophils # 0.0 (0-0.2) k/uL Sodium 136 L (137-145) mmol/L Potassium 3.9 (3.5-5.1) mmol/L Chloride 104 (98-107) mmol/L Carbon Dioxide 28 (22-30) mmol/L Anion Gap 4 mmol/L BUN 23 H (7-17) mg/dL Creatinine 0.55 (0.52-1.04) mg/dL Est GFR (CKD-EPI)AfAm >90 (>60 ml/min/1.73 sqM) Est GFR (CKD-EPI)NonAf >90 (>60 ml/min/1.73 sqM) Glucose 78 (74-99) mg/dL Calcium 9.3 (8.4-10.2) mg/dL Total Bilirubin 0.9 (0.2-1.3) mg/dL AST 45 H (14-36) U/L ALT 46 H (4-34) U/L Alkaline Phosphatase 174 H (38-126) U/L Troponin I (0.000-0.034) ng/mL Total Protein 6.8 (6.3-8.2) g/dL Albumin 4.0 (3.5-5.0) g/dL Amylase 51 (30-110) U/L Lipase 109 (23-300) U/L Urine Color Yellow Urine Appearance Clear (Clear) Urine pH 5.5 (5.0-8.0) Ur Specific Humphreys 1.028 (1.001-1.035) Urine Protein Negative (Negative) Urine Glucose (UA) Negative (Negative) Urine Ketones Negative (Negative) Urine Blood Negative (Negative) Urine Nitrite Negative (Negative) Urine Bilirubin Negative (Negative) Urine Urobilinogen <2.0 (<2.0) mg/dL Ur Leukocyte Esterase Large H (Negative) Urine RBC 3 (0-5) /hpf Urine WBC 17 H (0-5) /hpf Ur Squamous Epith Cells 1 (0-4) /hpf Urine Mucus Occasional H (None) /hpf 04/26/20 Range/Units 18:07 WBC (3.8-10.6) k/uL RBC (3.80-5.40) m/uL Hgb (11.4-16.0) gm/dL Hct (34.0-46.0) % MCV (80.0-100.0) fL MCH (25.0-35.0) pg MCHC (31.0-37.0) g/dL RDW (11.5-15.5) % Plt Count (150-450) k/uL Neutrophils % % Lymphocytes % % Monocytes % % Eosinophils % % Basophils % % Neutrophils # (1.3-7.7) k/uL Lymphocytes # (1.0-4.8) k/uL Monocytes # (0-1.0) k/uL Eosinophils # (0-0.7) k/uL Basophils # (0-0.2) k/uL Sodium (137-145) mmol/L Potassium (3.5-5.1) mmol/L Chloride (98-107) mmol/L Carbon Dioxide (22-30) mmol/L Anion Gap mmol/L BUN (7-17) mg/dL Creatinine (0.52-1.04) mg/dL Est GFR (CKD-EPI)AfAm (>60 ml/min/1.73 sqM) Est GFR (CKD-EPI)NonAf (>60 ml/min/1.73 sqM) Glucose (74-99) mg/dL Calcium (8.4-10.2) mg/dL Total Bilirubin (0.2-1.3) mg/dL AST (14-36) U/L ALT (4-34) U/L Alkaline Phosphatase (38-126) U/L Troponin I <0.012 (0.000-0.034) ng/mL Total Protein (6.3-8.2) g/dL Albumin (3.5-5.0) g/dL Amylase (30-110) U/L Lipase (23-300) U/L Urine Color Urine Appearance (Clear) Urine pH (5.0-8.0) Ur Specific Humphreys (1.001-1.035) Urine Protein (Negative) Urine Glucose (UA) (Negative) Urine Ketones (Negative) Urine Blood (Negative) Urine Nitrite (Negative) Urine Bilirubin (Negative) Urine Urobilinogen (<2.0) mg/dL Ur Leukocyte Esterase (Negative) Urine RBC (0-5) /hpf Urine WBC (0-5) /hpf Ur Squamous Epith Cells (0-4) /hpf Urine Mucus (None) /hpf - Radiology Data Radiology results: report reviewed, image reviewed Two-view x-ray of the chest is obtained. Report reviewed in its entirety. Impression by Dr. Parks shows no acute cardiopulmonary process. KUB x-ray was obtained. Report was reviewed in its entirety. Impression by Dr. Parks shows nonspecific bowel gas pattern. Found metallic density over the region of the umbilicus, likely represents a umbilical piercing. Correlate c linically Ultrasound of the right upper quadrant abdomen is obtained. Report reviewed in its entirety. Impression by Dr. Parks show some active reports positive sonographic Mnuoz sign, however there is no additional ultrasound evidence of acute cholecystitis. Coarse and echotexture the liver. 1.2 cm hypoechoic area of the right hepatic lobe likely represents septated cyst. Disposition Clinical Impression: Abdominal pain Disposition: HOME SELF-CARE Condition: Good Instructions (If sedation given, give patient instructions): Abdominal Pain (ED) Additional Instructions: Increase fluids. Take medications as directed. Follow-up with your primary care physician, discuss HIDA scan. Return to the emergency department immediately for any new, worsening, or concerning symptoms. Prescriptions: Famotidine [Pepcid] 20 mg PO HS #30 tablet Is patient prescribed a controlled substance at d/c from ED?: No Referrals: Mk Nino MD [Primary Care Provider] - 1-2 days Time of Disposition: 22:20
--- NOTE | 2020-04-26 20:55 | US ---
EXAMINATION TYPE: US abdomen limited DATE OF EXAM: 04/26/2020 COMPARISON: NONE CLINICAL HISTORY: Bloating/pain. RUQ pain/bloating x 2 weeks. EXAM MEASUREMENTS: Liver Length: 13.42 cm Gallbladder Wall: 0.17 cm CBD: 0.44 cm Right Kidney: 10.7 x 5.3 x 4.0 cm Pancreas: Normal. Liver: Coarsened echotexture. There is a hypoechoic area in the right lobe measuring 0.9 x 1.2 x 1.0 cm with apparent septation . Gallbladder: No cholelithiasis. No wall thickening. No pericholecystic edema. Evidence for sonographic Munoz's sign: Weblogic Developer notes the patient does have pain while scannin g over RUQ. CBD: Normal. Right Kidney: No hydronephrosis or masses seen IMPRESSION: 1. Weblogic Developer reports positive sonographic Munoz sign, however there is no additional ultrasound ev idence of acute cholecystitis. If there is clinical concern for cholecystitis, consider nuclear medic ine HIDA scan. 2. Coarsened echotexture of the liver. 1.2 cm hypoechoic area of the right hepatic lobe likely repres ents septated cyst.
[2020-04-26 22:16] VITALS: BP 151/65; PULSE 60; RESP 18
[2020-04-26 22:33] VITALS: TEMP 97.6
== END 2020-04-26 22:33 | disposition home or self-care (01) ==
LOC: EC 16:29
DX: R10.13 Epigastric pain (principal); R06.02 Shortness of breath; E07.9 Disorder of thyroid, unspecified; F32.9 Major depressive disorder, single episode, unspecified; Z96.642 Presence of left artificial hip joint; Z79.899 Other long term (current) drug therapy; Z79.890 Hormone replacement therapy; Z88.0 Allergy status to penicillin; Z88.2 Allergy status to sulfonamides
CPT/HCPCS: 36415; 71046; 74018; 76705; 80053; 81001; 82150; 83690; 84484; 85025; 87086; 93005; 96361; 96374; 99285

== ENCOUNTER → 2020-05-04 | Outpatient (CLI) | payer BC ==
--- NOTE | 2020-05-04 15:40 | NM ---
EXAMINATION TYPE: NM hepatobiliary w CCK DATE OF EXAM: 05/04/2020 COMPARISON: Ultrasound limited abdomen 04/26/2020 HISTORY: Abdominal pain TECHNIQUE: After the intravenous administration of 5.3 mCi Tc 99m Mebrofenin hepatobiliary scintigrap hy is performed. Immediate images post injection. FINDINGS: There is satisfactory initial accumulation of tracer by the liver. The gallbladder is visualized wit hin 30 minutes. The small bowel activity is noted within 16 minutes. At one hour CCK was administer ed, patient was injected with 1.5 mcg of Kinevac, and gallbladder ejection fraction is calculated at 89 %, in the normal range. Therefore there is no scintigraphic evidence of cystic or common bile jef t obstruction to suggest acute cholecystitis or gallbladder dyskinesia. IMPRESSION: Normal exam. No evidence of acute or chronic cholecystitis, or biliary dyskinesia.
== END | disposition home or self-care (01) ==
LOC: RADNMMAIN 06:50
PROVIDERS: ATTEND Nurse Practitioner Family
DX: R10.9 Unspecified abdominal pain (principal)
CPT/HCPCS: 78227; A9537; J2805

== ENCOUNTER → 2020-11-29 | Outpatient (CLI) | payer BC ==
--- NOTE | 2020-11-29 18:48 | BD ---
EXAMINATION TYPE: Axial Bone Density DATE OF EXAM: 11/29/2020 COMPARISON: 10/23/2017 CLINICAL HISTORY: 65 YR OLD FEMALE.....ICD-10 CODE: M81.0 OSTEOPOROSIS Height: 65.4 Weight: 166 FRAX RISK QUESTIONS: Family History (Parent hip fracture): YES Glucocorticoids (More than 3mos): YES (Ex: prednisone, prednisolone, methylprednisolone, dexamethasone, and hydrocortisone). History of Fracture in Adulthood: YES RISK FACTORS HISTORY OF: Surgery to LT HIP...THR AN ADULT Family History of Osteoporosis: YES, HER MOTHER WITH BROKEN HIPS Postmenopausal woman: YES, AT 48 YRS OLD Hyperparathyroidism: NO Adrenal Insufficiency: NO MEDICATIONS: Prednisone or other steroids: YES, FOR BAKERS CYST, NOW AND ON AND OFF Thyroid Medications: YES, SYNTHROID FOR ABOUT 10 YRS Additional Medications: CYMBALTA, ATIVAN ,BUSPAR, ROPINANIL , STATIN FOR CHOLESTEROL, VIT D Additional History: RLS, ARTHRITIS, ANXIETY, CHOLESTEROL, EXAM MEASUREMENTS: Bone mineral densitometry was performed using the [employer] System. Bone mineral density as measured about the Lumbar spine is: ----- L1-L4(G/cm2): 1.199 T Score Values are as follows: ----- L1: 0.5 ----- L2: -0.9 ----- L3: 0.6 ----- L4: 0.3 ----- L1-L4: 0.2 Bone mineral density has: Increased 2.5% SINCE.....10.23.2017 STUDY Bone mineral density about the R hip (g/cm2): 0.901 T Score values are as follows: -----R Neck: -1.3 -----R Total: -0.9 Bone mineral density has: Decreased -0.3% SINCE.....10.23.2017 STUDY FRAX%s: THERE IS A 21.6% CHANCE FOR A MAJOR OSTEOPOROTIC FX AND A 2.3% FOR HIP.....PROBABILITY FOR FX IN 10 YRS TIME IMPRESSION: Osteopenia (T Score between -2.5 and -1). There is slightly increased risk of fracture and the patient may be considered for treatment. Re-Screen 2-5 years. NOTE: T-SCORE=SD OF THE YOUNG ADULT MEAN.
--- NOTE | 2020-12-02 11:12 | MM ---
Reason for exam: screening (asymptomatic). Last mammogram was performed 1 year and 1 month ago. History: Patient is postmenopausal and has history of high-risk lesion on a previous biopsy at age 61. Family history of breast cancer in maternal cousin at age 60. Benign MG pre op needle loc RT of the right breast, November 06, 2016. High risk MG stereo VAD BX RT of the right breast, October 17, 2016. Benign stereotactic core biopsy of the right breast, March 10, 2002. Core biopsy of the right breast. Excisional biopsy of the left breast. Excisional biopsy of the right breast. Physical Findings: A clinical breast exam by your physician is recommended on an annual basis and results should be correlated with mammographic findings. MG 3D Screening Mammo W/Cad Bilateral CC and MLO view(s) were taken. Prior study comparison: October 30, 2019, bilateral MG 3d screening mammo w/cad. October 24, 2018, bilateral MG 3d screening mammo w/cad. The breast tissue is heterogeneously dense. This may lower the sensitivity of mammography. Previous mammotome biopsy in the right breast. No significant changes when compared with prior studies. ASSESSMENT: Negative, BI-RAD 1 RECOMMENDATION: Routine screening mammogram of both breasts in 1 year.
== END | disposition home or self-care (01) ==
LOC: RADMAMWWP 11:26
PROVIDERS: ATTEND Internal Medicine Geriatric Medicine
DX: M85.80 Other specified disorders of bone density and structure, unspecified site (principal)
CPT/HCPCS: 77063; 77067; 77080

== ENCOUNTER 2020-11-30 09:33 | Emergency (ER) | payer BC ==
[2020-11-30 09:39] VITALS: BP 154/86; PULSE 79; RESP 18; TEMP 98
[2020-11-30] MEDS ORDERED: KETOROLAC 15 MG/ML 1 ML VIAL IM STA (10:35)
--- NOTE | 2020-11-30 11:29 | XR ---
EXAMINATION TYPE: XR knee complete RT DATE OF EXAM: 11/30/2020 COMPARISON: NONE HISTORY: 65-year-old female with pain TECHNIQUE: 3 views FINDINGS: Tricompartmental degenerative spurring. Moderate knee joint effusion. Extensor mechanism appears inta ct. No acute fracture, subluxation, or dislocation. IMPRESSION: 1. Tricompartmental degenerative spurring. 2. Moderate knee joint effusion but without acute osseous abnormality seen. If concern for internal d erangement, MRI can be performed.
[2020-11-30] MEDS ORDERED: ACET/COD 300 MG/30 MG STARTER PACK 6 TAB BTL PO STA (11:43)
--- NOTE | 2020-11-30 11:44 | ED ---
Extremity Problem HPI - General Chief complaint: Extremity Problem,Nontraumatic Stated complaint: Knee pain Time Seen by Provider: 11/30/20 09:59 Source: patient Mode of arrival: ambulatory Limitations: physical limitation - History of Present Illness Initial comments: 65-year-old female presenting to the ER today for chief complaint of right knee swelling. Patient states she has nontraumatic right knee pain she states that she is very active and has noticed over the past 2 days as been very swollen and tender diffusely. She states she has able to almost fully flex and extend at that this does cause discomfort. She denies any fevers chills or redness of the knee. Patient denies any known injuries trauma or falls. Patient denies calf pain or swelling. Patient states at one point while walking it felt lie the knee was "going to give out". Denies additional complaints or concerns on arrival patient appears well nontoxic in no acute distress. - Related Data Home Medications Medication Instructions Recorded Confirmed Levothyroxine Sodium [Synthroid] 100 mcg PO DAILY 05/20/14 04/26/20 rOPINIRole HCL [Requip] 1 mg PO HS 08/25/16 04/26/20 L.acidoph,Paracasei, B.lactis 1 cap PO DAILY 04/15/19 04/26/20 [Probiotic] Vitamin B Complex 1 cap PO DAILY 04/15/19 04/26/20 Atorvastatin Calcium [Lipitor] 10 mg PO DAILY 04/26/20 04/26/20 DULoxetine HCL [Cymbalta] 120 mg PO DAILY 04/26/20 04/26/20 EPINEPHrine (Auto Inject) [Epipen] 0.3 mg IM ONCE PRN 04/26/20 04/26/20 Ergocalciferol [Vitamin D2] 50,000 unit PO Q7D 04/26/20 04/26/20 Ubidecarenone [Co Q-10] 100 mg PO DAILY 04/26/20 04/26/20 clonazePAM [KlonoPIN] 0.5 mg PO HS 04/26/20 04/26/20 Previous Rx's Medication Instructions Recorded Famotidine [Pepcid] 20 mg PO HS #30 tablet 04/26/20 Ketorolac [Toradol] 10 mg PO Q8HR 3 Days #9 tab 11/30/20 Allergies Allergy/AdvReac Type Severity Reaction Status Date / Time Penicillins Allergy Dyspnea Verified 11/30/20 09:39 Sulfa (Sulfonamide Allergy Dyspnea Verified 11/30/20 09:39 Antibiotics) Review of Systems ROS Statement: Those systems with pertinent positive or pertinent negative responses have been documented in the HPI. ROS Other: All systems not noted in ROS Statement are negative. Past Medical History Past Medical History: Asthma, Thyroid Disorder History of Any Multi-Drug Resistant Organisms: None Reported Past Surgical History: Breast Surgery, Joint Replacement Additional Past Surgical History / Comment(s): left hip replacement; biopsy rt breast, colonoscopy Past Anesthesia/Blood Transfusion Reactions: Postoperative Nausea & Vomiting (PONV) Past Psychological History: Depression Smoking Status: Never smoker Past Alcohol Use History: None Reported Past Drug Use History: None Reported - Past Family History Mother Family Medical History: Deep Vein Thrombosis (DVT) General Exam - General Exam Comments Initial Comments: General: The patient is awake and alert, in no distress Eye: Pupils are equal, round and reactive to light, extra-ocular movements are intact. No nystagmus. There is normal conjunctiva bilaterally. No signs of icterus. Ears, nose, mouth and throat: There are moist mucous membranes and no oral lesions. Neck: The neck is supple, there is no tenderness or JVD. Cardiovascular: There is a regular rate and rhythm. No murmur, rub or gallop is appreciated. Respiratory: Lungs are clear to auscultation, respirations are non-labored, breath sounds are equal. No wheezes, stridor, rales, or rhonchi. Gastrointestinal: Soft, non-distended, non-tender abdomen without masses or organomegaly noted. There is no rebound or guarding present. Musculoskeletal: There is right knee swelling diffusely. There is no redness, full ROM with only tenderness at maximal flexion. Strength 5/5. Sensation intact. DP pulses equal bilaterally 2+. Neurological: A&O x 3. CN II-XII intact grossly, There are no obvious motor or sensory deficits. Coordination appears grossly intact. Speech is normal. Skin: Skin is warm and dry and no rashes or lesions are noted. Psychiatric: Cooperative, appropriate mood & affect, normal judgment. Limitations: physical limitation Course Vital Signs 11/30/20 09:37 Temperature 98.0 F Pulse Rate 79 Respiratory 18 Rate Blood Pressure 154/86 O2 Sat by Pulse 97 Oximetry Medical Decision Making - Medical Decision Making 65yo female presenting for cc of knee pain. does not appear to be consistent wtih septic joint. US no DVT-molina cysts which has no significant localized tenderness-felt to be more of incidental finding overall. XR arthritis/effusion. At this time feels is most likely inflammatory reaction secondary to arthritis, however cannot rule out this is secondary to the molina cyst. Rectal the patient follow up with orthopedic surgery and discuss rest ice compression and elevation as well as taking NSAIDs as tolerated. Patient is agreeable to this care plan as well as discharge at this time Disposition Clinical Impression: Molina's cyst of knee, Right knee pain, Swelling of right knee joint, Arthritis of right knee Disposition: HOME SELF-CARE Condition: Good Instructions (If sedation given, give patient instructions): Bakers Cyst (ED), R.I.C.E. Treatment (ED) Additional Instructions: Please use medication as discussed. Please follow-up with family doctor in the next 2 days, recommend outpatient orthopedic follow-up for possible MRI-use knee immobilizer for comfort while ambulating otherwise removal and make sure your are ranging the right knee frequently, every 1 hour at least. Please return to emergency room if the symptoms increase or worsen or for any other concerns. Prescriptions: Ketorolac [Toradol] 10 mg PO Q8HR 3 Days #9 tab Is patient prescribed a controlled substance at d/c from ED?: No Referrals: Mk Nino MD [Primary Care Provider] - 1-2 days Shemar Munoz MD [STAFF PHYSICIAN] - 1-2 days Time of Disposition: 11:43
--- NOTE | 2020-11-30 12:14 | US ---
EXAMINATION TYPE: US venous doppler duplex LE RT DATE OF EXAM: 11/30/2020 11:41 AM COMPARISON: NONE CLINICAL HISTORY: 65-year-old female leg swelling. SIDE PERFORMED: Right TECHNIQUE: The lower extremity deep venous system is examined utilizing real time linear array sonog isai with graded compression, doppler sonography and color-flow sonography. FINDINGS: VESSELS IMAGED: Common Femoral Vein Deep Femoral Vein Greater Saphenous Vein * Femoral Vein Popliteal Vein Small Saphenous Vein * Proximal Calf Veins (* superficial vessels) Right Leg: Negative for DVT [employer]ode Miner Blasting notes: Anechoic area in pop fossa probable Molina's cyst measuring 4.4 x 1.7 x 2.6cm IMPRESSION: 1. No evidence for DVT within the right lower extremity imaged from the groin to the upper calf. 2. Moderate-sized 4.4 cm Molina's cyst.
== END 2020-11-30 12:26 | disposition home or self-care (01) ==
LOC: EC 09:33
DX: M71.21 Synovial cyst of popliteal space [Baker], right knee (principal); M17.11 Unilateral primary osteoarthritis, right knee; F32.9 Major depressive disorder, single episode, unspecified; J45.909 Unspecified asthma, uncomplicated; Z88.0 Allergy status to penicillin
CPT/HCPCS: 73562; 93971; 99284; 96372; L1830; J1885

== ENCOUNTER → 2022-02-16 | Outpatient (CLI) | payer MEDICARE ==
--- NOTE | 2022-02-18 13:04 | MM ---
Reason for Exam: Screening (asymptomatic). Last mammogram was performed 1 year(s) and 3 month(s) ago. Patient History: Menarche at age 18. First Full-Term at age 19. Postmenopausal. Core Biopsy on the Right side. Excisional Biopsy on the Right side. Excisional Biopsy on the Left side. 11/06/2016, Benign Core Biopsy on the right side. 10/17/2016, High risk Core Biopsy on the right side. 03/10/2002, Benign Stereotactic Core Biopsy on the right side. Maternal cousin had breast cancer, age 60. Paternal cousin had breast cancer, age 70. Risk Values: Lillie 5 year model risk: 1.6%. NCI Lifetime model risk: 6.2%. Prior Study Comparison: 10/24/2018 Bilateral Screening Mammogram, [facility]. 10/30/2019 Bilateral Screening Mammogram, [facility]. 11/29/2020 Bilateral Screening Mammogram, [facility]. Tissue Density: There are scattered fibroglandular densities. Findings: Analyzed By CAD. Microclip right breast from prior biopsy. There is no suspicious group of microcalcifications or new suspicious mass in either breast. Overall Assessment: Negative, BI-RAD 1 Management: Screening Mammogram of both breasts in 1 year. 1. Patient should continue monthly self breast exams. 2. A clinical breast exam by your physician is recommended on an annual basis and results should be correlated with mammographic findings. A negative mammogram should not preclude additional follow-up of suspicious palpable abnormalities. Electronically signed and approved by: Concepcion Whitfield M.D. Radiologist
== END | disposition home or self-care (01) ==
LOC: RADMAMWWP 14:53
PROVIDERS: ATTEND Internal Medicine Geriatric Medicine
DX: Z12.31 Encounter for screening mammogram for malignant neoplasm of breast (principal); Z78.0 Asymptomatic menopausal state; Z80.3 Family history of malignant neoplasm of breast
CPT/HCPCS: 77063; 77067

== ENCOUNTER → 2022-06-28 | Outpatient (CLI) | payer MEDICARE ==
[2022-06-28 15:55] LABS: INR 0.96 (0.90-1.11); Prothrombin Time 10.6 sec (9.9-11.9)
[2022-06-28 16:01] LABS: Basophils # (A) 0.04 X 10*3/uL (0.00-0.10); Basophils % (A) 0.7 %; Eosinophils # (A) 0.14 X 10*3/uL (0.04-0.35); Eosinophils % (A) 2.3 %; HCT 44.9 % (37.2-46.3); HGB 14.3 g/dL (12.0-15.0); Immature Grans, Automated 0.3 %; Lymphocytes # (A) 1.35 X 10*3/uL (0.90-5.00); MCH 29.5 pg (27.0-32.0); MCHC 31.8 g/dL (32.0-37.0); MCV 92.8 fL (80.0-97.0); Mean Platelet Volume 10.6 fL (9.5-12.2); Monocytes # (A) 0.46 X 10*3/uL (0.20-1.00); Monocytes % (A) 7.5 %; NRBC Per 100 WBC 0 /100 WBCS (0.0-0.0); Neutrophils # (A) 4.13 X 10*3/uL (1.80-7.70); Neutrophils % (A) 67.2 %; Platelet Count 309 X 10*3/uL (140-440); RBC 4.84 X 10*6/uL (4.10-5.20); RDW 13.8 % (11.5-14.5); WBC 6.14 X 10*3/uL (4.50-10.00)
[2022-06-28 16:17] LABS: African American GFR (CKD) 86.4 (60.0-200.0); Anion Gap 10.2 mmol/L (10.00-18.00); Carbon Dioxide 24.2 mmol/L (20.0-27.5); Non-African American GFR(CKD) 74.6 (60.0-200.0); Potassium 4.6 mmol/L (3.5-5.5)
== END | disposition home or self-care (01) ==
LOC: LABPAT 09:39
PROVIDERS: ATTEND Orthopaedic Surgery
DX: Z01.812 Encounter for preprocedural laboratory examination (principal); Z22.322 Carrier or suspected carrier of Methicillin resistant Staphylococcus aureus; M17.11 Unilateral primary osteoarthritis, right knee
CPT/HCPCS: 80051; 82565; 82947; 84520; 85025; 85610; 87070

== ENCOUNTER 2022-07-18 05:54 | Day surgery (SDC) | payer MEDICARE ==
[2022-07-13 10:28] VITALS: BMI 24.1
--- NOTE | 2022-07-17 08:45 | P.HPOR ---
History of Present Illness H&P Date: 07/17/22 Chief Complaint: Right knee pain The patient is 66-year-old retired female who presents with progressive right knee pain for the past several years worsening recently. She notes swelling, giving way, and locking. She also notes significant stiffness. She's tried previous medications along with injections without much relief. She's had a previous arthroscopy. It limits her normal function and daily activities. Review of Systems As per HPI Past Medical History Past Medical History: Asthma, Osteoarthritis (OA), Thyroid Disorder History of Any Multi-Drug Resistant Organisms: None Reported Past Surgical History: Breast Surgery, Joint Replacement Additional Past Surgical History / Comment(s): left hip replacement; biopsy rt breast, colonoscopy, right knee arthroscopy Past Anesthesia/Blood Transfusion Reactions: Postoperative Nausea & Vomiting (PONV) Smoking Status: Former smoker - Past Family History Mother Family Medical History: Deep Vein Thrombosis (DVT) Medications and Allergies Home Medications Medication Instructions Recorded Confirmed Type Levothyroxine Sodium [Synthroid] 100 mcg PO DAILY 05/20/14 07/13/22 History Atorvastatin Calcium [Lipitor] 10 mg PO DAILY 04/26/20 07/13/22 History DULoxetine HCL [Cymbalta] 120 mg PO DAILY 04/26/20 07/13/22 History EPINEPHrine (Auto Inject) [Epipen] 0.3 mg IM ONCE PRN 04/26/20 07/13/22 History Ergocalciferol [Vitamin D2] 50,000 unit PO MO 04/26/20 07/13/22 History Balance Of Nature 2 tab PO TID 07/13/22 History Relief Factor 1 dose PO DAILY 07/13/22 History busPIRone HCl [Buspar] 20 mg PO DAILY 07/13/22 07/13/22 History Allergies Allergy/AdvReac Type Severity Reaction Status Date / Time Penicillins Allergy Dyspnea Verified 07/13/22 10:08 Sulfa (Sulfonamide Allergy Dyspnea Verified 07/13/22 10:08 Antibiotics) Physical Examination - Knee right Appearance: effusion Effusion grade: grade 1 Varus alignment in stance: 5 degrees Tenderness with palpation: medial Pain: with flexion Gait: limping ROM: extension: -10 degrees ROM: flexion: 110 degrees Crepitus with motion: Yes Strength: extension: 5/5 Strength: flexion: 5/5 Meniscal tests: medial meniscal tests: positive Results The patient is a well-developed well-nourished female proximal 5 foot 6, 160 pounds of mesomorphic habitus. HEENT exam is nonfocal, neck is supple. She has painless passive motion of her right hip. Straight leg raise is negative. Her distal neurovascular status appears intact right lower extremity. - Diagnostic results Knee x-ray: image reviewed (3 views of the right knee obtained the office show severe medial compartment osteoarthrosis with [id number] changes and subchondral sclerosis.) Assessment and Plan Assessment: Right knee severe medial and patellofemoral compartment osteoarthrosis Plan: I talked to the patient at length regarding her condition and treatment options. At this point she is quite symptomatic related to pain secondary to her osteoarthrosis despite conservative measures. After thorough discussion she opted to proceed with surgery. We will plan to proceed with right total knee arthroplasty. We will institute DVT prophylaxis postoperatively. Risks and benefits were discussed at length in layman's terms. Time with Patient: Less than 30
[~2022-07-18 05:54] MED LIST changes: +ACETAMINOPHEN TAB 500 MG TAB PO PRN; -DEXAMETHASONE SOD PHOSPHATE 10 MG/ML 1 ML VIAL IV ONE; -HYDROmorphone 1 MG/ML 1 ML SYRINGE IVP PRN; -LACTATED RINGERS 1,000 ML IV SCH; +LIDOCAINE 1% (10MG/ML) FOR IV START INTRADERMA PRN; -LIDOCAINE 1% 20 ML VIAL (10MG/ML) FOR IV START INTRADERMA PRN; +MELOXICAM 7.5 MG TAB PO PRN; -ONDANSETRON 4 MG/2 ML VIAL IVP ONE; -Pre Op ABX Message 1 EACH MISC MISCELLANE ONE; -SCOPOLAMINE 1.5MG/72HR PATCH TRANSDERM ONE
[2022-07-18] MEDS: LACTATED RINGERS 1,000 ML IV SCH ×2 (06:32→17:19)
[2022-07-18] MEDS ORDERED: ACETAMINOPHEN TAB 500 MG TAB ONE (06:35)
[2022-07-18] MEDS ORDERED: ONDANSETRON 4 MG/2 ML VIAL ONE (06:35)
[2022-07-18] MEDS ORDERED: MELOXICAM 7.5 MG TAB PO ONE (06:52)
[2022-07-18] MEDS ORDERED: DEXAMETHASONE SOD PHOSPHATE 4 MG/ML 1 ML VIAL IVP ONE (06:52)
[2022-07-18] MEDS ORDERED: HYDROmorphone 0.5 MG/0.5 ML SYRINGE IVP PRN ×3 (07:00→09:22)
[2022-07-18] MEDS ORDERED: MIDAZOLAM 2 MG/2 ML VIAL IVP ONE (07:13)
[2022-07-18] MEDS ORDERED: TRANEXAMIC ACID IN NACL,ISO-OS 1,000 MG/100 ML BAG ONE (07:53)
[2022-07-18] MEDS ORDERED: PROPOFOL 10 MG/ML 20 ML VIAL IV ONE (07:53)
[2022-07-18] MEDS ORDERED: ROPIVACAINE 5 MG/ML 30 ML VIAL ONE (07:53)
[2022-07-18] MEDS ORDERED: fentaNYL (PF) 50 MCG/ML 2 ML AMP ONE (07:53)
[2022-07-18] MEDS ORDERED: MIDAZOLAM 2 MG/2 ML VIAL ONE (07:53)
[2022-07-18] MEDS ORDERED: SODIUM CHLORIDE 0.9% (PF) 10 ML VIAL ONE (07:53)
[2022-07-18] MEDS ORDERED: TRANEXAMIC ACID IN NACL,ISO-OS 1,000 MG in SALINE 1 100ML.BAG IVPB PRN (07:58)
[2022-07-18] MEDS ORDERED: ceFAZolin 1,000 MG in SODIUM CHLORIDE 0.9% 1,000 ML IRRIGATION ONE (08:21)
[2022-07-18] MEDS ORDERED: LACTATED RINGERS 1,000 ML IV ONE ×2 (09:09→14:11)
[2022-07-18] MEDS ORDERED: HYDROcodone/APAP 5-325MG 1 EACH TAB PO PRN (09:22)
[2022-07-18] MEDS ORDERED: NALOXONE 0.4 MG/ML 1 ML VIAL IV PRN (09:22)
--- NOTE | 2022-07-18 09:51 | P.OP ---
Date of Procedure: 07/18/22 Preoperative Diagnosis: Right knee severe tricompartmental osteoarthrosis Postoperative Diagnosis: Same Procedure(s) Performed: Right total knee arthroplastycementedcruciate retaining Implants: Depuy Attune size 5 cemented femoral component, size 4 cemented tibial component, 9 mm articular surface, 35 mm cemented patellar component. This is a cruciate retaining implant. Anesthesia: regional, spinal Surgeon: Collin Vang Handle Bender #1: Franki Bustillos Estimated Blood Loss (ml): 50 Pathology: other (Bone fragments) Condition: stable Disposition: PACU Indications for Procedure: The patient is a 67-year-old female who presents with progressive right knee pain secondary to osteoarthrosis despite conservative measures. A discussion of the risks and benefits of operative intervention versus continued conservative measures was made with the patient. She opted to proceed with surgery. Operative risks to include infection, neurovascular injury, development of blood clots, possible component loosening/failure need for subsequent procedures was discussed. Informed consent was obtained. Operative Findings: As below Description of Procedure: The patient was brought to the operating room, and after induction of spinal anesthesia the right lower extremity was prepped and draped in a normal fashion. The tourniquet was inflated to 270 mmHg. A longitudinal incision extending 3 finger breaths above the superior pole of the patella extending to the medial aspect the tibial tubercle was then made. The skin and subcutaneous tissues were divided sharply. Electrocautery was used for hemostasis. A medial parapatellar arthrotomy was then performed. The medial soft tissues to include the superficial and deep portions of the medial collateral ligament as well as the medial hamstring tendons were elevated subperiosteally. The proximal medial tibia osteophytes were carefully removed. The patella was everted. The knee was flexed. A portion of the retropatellar fat pad was excised sharply. The anterior cruciate ligament was sacrificed. A starting hole was made in the distal femur 1 cm anterior to the posterior cruciate origin. An intramedullary femoral guide was gently inserted planning on 5 valgus distal cut with 9 mm distal resection. The cutting block was pinned in place. The distal cut was then made. The posterior referencing sizing guide was utilized. 3 of external rotation was built into the system and verified off the trans- epicondylar axis and the posterior condyles. I felt size 5 narrow was most appropriate. The cutting block was pinned in place. The anterior, posterior, and chamfer cuts were then made. The bone fragments were removed. A sulcus cut was then made with the appropriate guide. The trial size 5 narrow femoral component was then placed and was fully seated. There was good anterior to posterior and medial to lateral fit. The distal peg holes were then drilled. The trial component was then removed. Attention was then paid towards preparing the proximal tibia. An extra medullary guide was utilized in line with the tibial shaft and second metatarsal distally. A 7 posterior slope was planned. I planned on 2 mm resection from the medial compartment. The cutting block was pinned in place. The proximal tibial cut was then made. The bone was removed in one fragment. The remnants of the medial and lateral menisci were excised the capsule junction with electrocautery. The tibia sized most appropriately at size 4. The posterior osteophytes off the distal femur were carefully removed with a curved osteotome. The trial tibial and femoral components were placed along with a 9 millimeters articular surface. I was able to obtain full flexion and extension with good stability with varus and valgus stress. After several flexion and extension cycles, the tibial rotation was marked with electrocautery in line with the medial one third of the tibial tubercle. Attention was then paid towards preparing the patella. A patella reamer was utilized taking this down to 14 mm of bone stock. A good flush cut was made. The patella sized most appropriately at 35 millimeters. The peg holes were then drilled. The trial component was placed. The knee was taken through a range of motion. I had good patellofemoral tracking with no hands technique. The trial components were then removed. The tibia was prepared in the appropriate rotation with appropriate drill and keel punch. The flexion and extension gaps were checked and felt to be symmetric. The posterior soft tissues were injected with ropivacaine. The bony surfaces were prepared with pulsatile lavage and dried. The deep tibial component was then cemented in place and was fully seated. Excess cement was removed. The femoral component was cemented in place and was fully seated. Again excess cement was removed. The trial 9 millimeters surface was then inserted in the knee was put in full extension. The patella component was cemented in place. After the cement had sufficiently hardened, the knee was again taken through a range of motion. Again there was good stability in flexion and extension with varus and valgus stress. The trial articular surface was then removed. The final articular surface was placed and was impacted. Care was taken to avoid any soft tissue interposition. Pulsatile lavage was again utilized. The tourniquet was deflated with approximately 60 minutes total tourniquet time. There was minimal drainage therefore a deep drain was not placed. The medial parapatellar arthrotomy was then closed with #2 Ethibond suture. The subcutaneous tissues were reapproximated interrupted 2-0 Vicryl sutures. The skin was reapproximated with 3-0 subarticular strata fix suture. Skin tape and adhesive was applied. A sterile dressing was applied. The patient was then awoken from sedation and transferred to recovery room in good condition. Blood loss was estimated at 50 milliliters. No complications were incurred. Sponge and needle counts were correct at the end the case. Franki JONES assisted during the major components this case to include exposure, bone resection, and implantation.
--- NOTE | 2022-07-18 10:14 | XR ---
EXAMINATION TYPE: XR knee limited RT DATE OF EXAM: 07/18/2022 COMPARISON: NONE TECHNIQUE: Two views submitted HISTORY: Post op FINDINGS: There is a prosthetic knee in near anatomic alignment. There is soft tissue edema and emphysema. IMPRESSION: 1. Postoperative change. Appears in near-anatomic alignment
[2022-07-18] MEDS ORDERED: ROPIVACAINE 1,100 MG, SODIUM CHLORIDE 0.9% 500 ML 330 ML, EMPTY PAIN BALL 1 EACH MISCELLANE PRN ×2 (10:28)
--- NOTE | 2022-07-18 13:13 | P.ANPRN ---
Procedure Note - Anesthesia - Nerve Block Performed Right Adductor Canal Infusion Time Out Performed: Yes (712) Date of Procedure: 07/18/22 Procedure Start Time: 07:13 Procedure Stop Time: 07:18 Location of Patient: PreOp Indication: Acute Post-Operative Pain, Requested by Surgeon Specifically requested for management of pain by DrOc: Collin Vang (\) Sedation Type: Sedate with meaningful contact maintained Preparation: Sterile Prep Position: Supine Catheter Depth at Skin (cm): 8 Catheter: Indwelling Needle Types: Pajunk Needle Gauge: 18, 21 Ultrasound used to visualize needle placement: Yes Ultrasound used to observe medication spread: Yes Injectate: 0.5% Ropivacaine (see comment for volume) (15cc +10cc nacl pf) Blood Aspirated: No Pain Paresthesia on Injection Noted: No Resistance on Injection: Normal Image Stored and Saved: Yes Events: Uneventful and Well Tolerated
--- NOTE | 2022-07-18 13:14 | P.ANPRN ---
Procedure Note - Anesthesia - Nerve Block Performed Right iPack Single Time Out Performed: Yes (0712) Date of Procedure: 07/18/22 Procedure Start Time: Procedure Stop Time: Location of Patient: PreOp Indication: Acute Post-Operative Pain, Requested by Surgeon Specifically requested for management of pain by DrOc: Collin Vang Sedation Type: Sedate with meaningful contact maintained Preparation: Sterile Prep Position: Supine Catheter: None Needle Types: Pajunk Needle Gauge: 21 Ultrasound used to visualize needle placement: Yes Ultrasound used to observe medication spread: Yes Injectate: 0.5% Ropivacaine (see comment for volume) (15cc + 10cc nacl pf) Blood Aspirated: No Pain Paresthesia on Injection Noted: No Resistance on Injection: Normal Image Stored and Saved: Yes Events: Uneventful and Well Tolerated
[2022-07-18] MEDS: HYDROcodone/APAP 7.5-325MG 1 EACH TAB PO PRN (18:29)
[2022-07-18] MEDS ORDERED: SENNOSIDES-DOCUSATE SODIUM 1 EACH TAB PO SCH (21:00)
[2022-07-19] MEDS: HYDROcodone/APAP 7.5-325MG 1 EACH TAB PO PRN (06:00)
[2022-07-19] MEDS: ONDANSETRON 4 MG/2 ML VIAL IVP PRN ×2 (06:17→12:12)
[2022-07-19 07:31] VITALS: BP 132/74; PULSE 64; RESP 18; TEMP 97.6
[2022-07-19] MEDS ORDERED: RIVAROXABAN 10 MG TAB PO SCH (09:00)
--- NOTE | 2022-07-19 09:07 | P.PN ---
Progress Note - Text Progress Note Date: 07/19/22 (764) Anesthesiology Postop day 1 status post total knee arthroplasty with adductor canal catheter. Patient doing well. VAS 0 out of 10. Gross strength intact in lower extremity. Afebrile. Denies alterations in sensorium. Complaining of slight nausea with oral Central's. Catheter site intact. Heart regular rate Lungs nonlabored Abdomen nondistended Assessment: Postop day 1 status post total knee arthroplasty with adductor canal catheter Plan: All questions answered. Maintain catheter 2 more days with patient removal at home. Instructions were given at discharge.
[2022-07-19] MEDS ORDERED: ATORVASTATIN 10 MG TAB PO SCH (10:00)
[2022-07-19] MEDS ORDERED: busPIRone HCl 10 MG TAB PO SCH (10:00)
[2022-07-19] MEDS ORDERED: LEVOTHYROXINE 100 MCG TAB PO SCH (10:00)
[2022-07-19] MEDS ORDERED: DULoxetine HCL 60 MG CAPSULE.DR PO SCH (10:00)
--- NOTE | 2022-07-19 10:22 | P.DS ---
Providers Date of admission: 07/18/2022 Expected date of discharge: 07/19/22 Attending physician: Collin Vang Consults: 07/18/22 09:25 Consult Physician Routine Consulting Provider: Kamila Hernandez Consult Reason/Comments: Medical Management s/p RTKA Do you want consulting provider notified?: Yes Primary care physician: [facility] Course: Date of admission: 07/18/2022 Date of discharge: 07/19/2022 Admission diagnosis: right knee osteoarthritis Discharge diagnosis: same Attending physician: Dr. Vang Surgical procedures: right total knee arthroplasty Brief history: Patient is a [67-year-old female] with a history of [progressive primary right knee osteoarthritis]. At this point patient has failed conservative treatment measures and has opted to proceed with a elective [right total knee arthroplasty]. Hospital course: Details of patient's surgery can be found in operative report. Patient tolerated the procedure well and was subsequently transported to orthopedic floor. Patient's orthopeidc and medical care was provided daily. Patient had daily laboratory tests performed for evaluation of overall blood counts. Patient had daily physical therapy to include strengthening range of motion as well as education with walker ambulation. Patient was treated with Xarelto for their postoperative DVT prophylaxis during their inpatient stay. Patient was noted to have a relatively uneventful postoperative course. Patient reported satisfactory pain control with oral pain medications by postoperative day 1. Patient showed satisfactory progress with physical therapy. Patient moved steadily through the program and had no difficulty meeting the goals by postoperative day 1. Given patient's otherwise satisfactory course and having met physical therapy goals, plan is to discharge patient [home with health services] on postoperative day 1. Discharge condition/disposition: Patient will be discharged home in stable condition. Discharge medications: Instructions are given on resumption of patient's normal daily medications per primary care recommendation, in addition patient will be prescribed [place], Eliquis 2.5 mg BID x 2 weeks; Colace. Discharge instructions: 1. Wound care and infection precautions, keep incision dry and covered while showering, no lotions, creams, moisturizers. No soaking, tubs, pools, hottubs. Do not scrub over the incision. 2. Weight-bear [as tolerated] with walker / cane until follow-up. 3. Ice and elevate when necessary. Do not exceed 20 minutes per hour with ice pack. 4. Utilize compression sleeve until seen at first follow up appointment. 5. Visiting nursing care. 6. Home physical therapy including home CPM. 7. Pain meds and anticoagulants per prescription. 8. Pain medication has potential to cause constipation. Increase oral fluid and fiber intake. Contact primary care provider if you have not had a bowel movement within 48 hours after discharge 9. No anti-inflammatory medication until discussed at first post operative visit, this including Motrin, Aleve, Mobic, Diclofenac. 10. Follow up in office at 2 weeks postop with Scott Duong PA-C / Franki Bustillos PA-C 11. Follow up with your primary care doctor 7-10 days after discharge. 12. Contact [facility] with any questions, . Assessment: right knee osteoarthritis Procedures: right total knee arthroplasty Patient Condition at Discharge: Good Plan - Discharge Summary Discharge Rx Participant: Yes New Discharge Prescriptions: New Docusate [Colace] 100 mg PO DAILY #30 capsule Apixaban [Eliquis] 2.5 mg PO BID #60 tab HYDROcodone/APAP 7.5-325MG [[place] 7.5] 1 each PO Q6HR PRN #28 tab PRN Reason: Pain No Action Levothyroxine Sodium [Synthroid] 100 mcg PO DAILY Ergocalciferol [Vitamin D2] 50,000 unit PO MO EPINEPHrine (Auto Inject) [Epipen] 0.3 mg IM ONCE PRN PRN Reason: Anaphylaxis DULoxetine HCL [Cymbalta] 120 mg PO DAILY Atorvastatin Calcium [Lipitor] 10 mg PO DAILY busPIRone HCl [Buspar] 20 mg PO DAILY Relief Factor 1 dose PO DAILY Balance Of Nature 2 tab PO TID Discharge Medication List Levothyroxine Sodium [Synthroid] 100 mcg PO DAILY 05/20/14 [History] Atorvastatin Calcium [Lipitor] 10 mg PO DAILY 04/26/20 [History] DULoxetine HCL [Cymbalta] 120 mg PO DAILY 04/26/20 [History] EPINEPHrine (Auto Inject) [Epipen] 0.3 mg IM ONCE PRN 04/26/20 [History] Ergocalciferol [Vitamin D2] 50,000 unit PO MO 04/26/20 [History] Balance Of Nature 2 tab PO TID 07/13/22 [History] Relief Factor 1 dose PO DAILY 07/13/22 [History] busPIRone HCl [Buspar] 20 mg PO DAILY 07/13/22 [History] Apixaban [Eliquis] 2.5 mg PO BID #60 tab 07/19/22 [Rx] Docusate [Colace] 100 mg PO DAILY #30 capsule 07/19/22 [Rx] HYDROcodone/APAP 7.5-325MG [[place] 7.5] 1 each PO Q6HR PRN #28 tab 07/19/22 [Rx] Follow up Appointment(s)/Referral(s): Franki Bustillos PAC [PHYSICIAN [employer] POLLUTION ENGINEER] - 08/03/22 11:00 am Mk Nino MD [Primary Care Provider] - 1 Week Patient Instructions/Handouts: Knee Replacement (DC) Activity/Diet/Wound Care/Special Instructions: Orthopedic Discharge Instructions: 1. Wound care and infection precautions, keep incision dry and covered while showering, no lotions, creams, moisturizers. No soaking, pools, hot tubs. Do not scrub over incision. 2. Weight-bear as tolerated with walker / cane until follow-up. 3. Ice and elevate when necessary. Do not exceed 20 minutes per hour with ice pack. 4. Utilize compression sleeve until seen at first follow up appointment. 5. Pain meds and anticoagulants per prescription. 6. Pain medication has potential to cause constipation. Increase oral fluid and fiber intake. Contact primary care provider if you have not had a bowel movement within 48 hours after discharge. 7. No anti-inflammatory medication until discussed at first post operative visit, this including Motrin, Aleve, Mobic, Diclofenac. 8. Follow up in office at 2 weeks postop with Scott Duong PA-C / Franki Bustillos PA-C 9. Follow up with your primary care doctor 7-10 days after discharge. 10. Contact [facility] with any questions, . keep incision clean, dry, intact. While showering, cover tape was Saran wrap. Keep fusion tape on until follow-up appointment in office in 2 weeks. Medications: [place]; Colace; Eliquis 2.5 mg twice a day 2 weeks Discharge Disposition: HOME WITH HOME HEALTH SERVICES
[2022-07-19 11:28] LABS: Basophils # (A) 0.03 X 10*3/uL (0.00-0.10); Basophils % (A) 0.3 %; Eosinophils # (A) 0.03 X 10*3/uL (0.04-0.35); Eosinophils % (A) 0.3 %; HCT 34.3 % (37.2-46.3); HGB 11.2 g/dL (12.0-15.0); Immature Grans, Automated 0.4 %; Lymphocytes # (A) 1.24 X 10*3/uL (0.90-5.00); Lymphocytes % (A) 13.9 %; MCH 29.7 pg (27.0-32.0); MCHC 32.7 g/dL (32.0-37.0); Mean Platelet Volume 9.9 fL (9.5-12.2); Monocytes # (A) 0.76 X 10*3/uL (0.20-1.00); Monocytes % (A) 8.5 %; NRBC Per 100 WBC 0 /100 WBCS (0.0-0.0); Neutrophils # (A) 6.82 X 10*3/uL (1.80-7.70); Neutrophils % (A) 76.6 %; Platelet Count 201 X 10*3/uL (140-440); RBC 3.77 X 10*6/uL (4.10-5.20); RDW 13.7 % (11.5-14.5); WBC 8.92 X 10*3/uL (4.50-10.00)
--- NOTE | 2022-07-19 11:32 | P.PN ---
Subjective Progress Note Date: 07/19/22 Principal diagnosis: Right knee osteoarthritis Patient was seen at bedside this morning resting comfortably lying in semirecumbent position bed. Patient says she did get up with physical therapy this morning and walked around the room and into the hallway and up and down steps. Patient says she has urinated since surgery several times. Patient says she does live at home and does take care of her father who lives with her. Patient says she does not have a walker for home. Patient says the pain is tolerable with medication. Patient denies chest pain, fever, shortness breath, nausea, vomiting, change in vision, loss of bowel/bladder control. Objective - Vital Signs Vital signs: Vital Signs Temp 97.6 F 07/19/22 07:30 Pulse 64 07/19/22 07:30 Resp 18 07/19/22 07:30 BP 132/74 07/19/22 07:30 Pulse Ox 98 07/19/22 07:30 FiO2 Intake & Output 07/18/22 07/19/22 07/19/22 18:59 06:59 18:59 Intake Total 1702 Output Total 50 Balance 1652 Weight 70.2 kg Intake: IV 1702 Output: Estimated Blood Loss 50 Other: # Voids 2 2 - Exam Right knee: Incision is clean, dry, and intact. The exofin fusion tape is in good condition. There is minimal soft tissue swelling and ecchymosis surrounding the medial and lateral aspects of the incision. Calf is soft, no tenderness with palpation. Plantar flexion, dorsiflexion, EHL, FHL are intact. Sensory exam to light touch throughout the extremity is intact, dorsal pedis pulses 2+. Assessment and Plan Assessment: 1. Right knee osteoarthritis - Postoperative day 1 status post right total knee arthroplasty Plan: 1. Right knee osteoarthritis - right total knee arthroplasty performed yesterday, 07/18/2022. Patient stable at bedside this morning. Prescription for walker was signed. Discharge home today with health services. 2. Appreciate medical management 3. Pain management - [place]; Dilaudid 4. DVT prophylaxis - Xarelto in hospital; going home with Eliquis 2.5 mg BID x 2 weeks 5. GI ppx - Senna; going home with colace 6. PT/OT - weightbearing as tolerated with walker 7. Encourage incentive spirometer use 8. Discharge planning - home today with health services Time with Patient: Less than 30
[2022-07-19] MEDS: LACTATED RINGERS 1,000 ML IV SCH (11:57)
[2022-07-19] MEDS ORDERED: hydrOXYzine pamoate 25 MG CAP PO PRN (12:07)
--- NOTE | 2022-07-19 13:42 | P.CONS ---
History of Present Illness - Reason for Consult Consult date: 07/19/22 Postop medical management, right knee arthroplasty - History of Present Illness This is a 67-year-old female who was admitted under orthopedic services and underwent right total knee arthroplasty. Patient follows with Dr. Nino in the outpatient setting and went to him for presurgical clearance. Patient has a past medical history of asthma and osteoarthritis along with hypothyroidism. Patient also reports to some depression and was a former smoker, denies alcohol use and denies any other illicit drug use. Patient has worked with physical therapy and did relatively well scheduled to be discharged today. CBC was drawn this morning and within normal limits WBC is 8.92 with a hemoglobin of 11.2. Vital signs are stable and home medications have been resumed. Patient denies chest pain, shortness of breath, or palpitations. Patient is afebrile and denies any vomiting. Patient was having a rough night with nausea postanesthesia although Zofran is helping. Review Of Systems: Constitutional: No fever, no chills, no night sweats. No weight change. No weakness, fatigue or lethargy. No daytime sleepiness. EENT: No headache. No blurred vision or double vision, no loss of vision. No loss of Hearing, no ringing in the ears, no dizziness. No nasal drainage or congestion. No epistaxis. No sore throat. Lungs: No shortness of breath, cough, no sputum production. No wheezing. Cardiovascular: No chest pain, no lower extremity edema. No palpitations. No paroxysmal nocturnal dyspnea. No orthopnea. No lightheadedness or dizziness. No syncopal episodes. Abdominal: No abdominal pain. Reported some intermittent nausea postop, no reports of vomiting. No diarrhea. No constipation. No bloody or tarry stools.. No loss of appetite. Genitourinary: No dysuria, increased frequency, urgency. No urinary retention. Musculoskeletal: No myalgias. No muscle weakness, no gait dysfunction, no frequent falls. No back pain. No neck pain. Reports mild right knee discomfort Integumentary: No wounds, no lesions. No rash or pruritus. No unusual bruising. No change in hair or nails. Neurologic: No aphasia. No facial droop. No change in mentation. No head injury. No headache. No paralysis. No paresthesia. Psychiatric: No depression. No anxiety. No mood swings. Endocrine: No abnormal blood sugars. No weight change. No excessive sweating or thirst. No cold intolerance. PHYSICAL EXAMINATION: GENERAL: The patient is alert and oriented x4, Well developed, well nourished. HEENT: Pupils are round and equally reacting to light. EOMI. no scleral icterus. No conjunctival pallor. Normocephalic, atraumatic. No pharyngeal erythema. No thyromegaly. CARDIOVASCULAR: S1 and S2 muffled PULMONARY: diminished breath sounds bilaterally with no wheezing or rhonchi noted. ABDOMEN: soft. Nontender on exam. non-distended, normoactive bowel sounds. No palpable organomegaly. MUSCULOSKELETAL: No joint swelling or deformity. EXTREMITIES: No cyanosis, clubbing, or pedal edema. NEUROLOGICAL: Gross neurological examination did not reveal any focal deficits. Diffuse weakness SKIN: No rashes. Assessment: Postop right total knee arthroplasty History of asthma, not in exacerbation Osteoarthritis history Hypothyroidism history of depression GI prophylaxis DVT prophylaxis Full code Plan: Recommend to continue with current medications and management per orthopedic services. Patient has been seen and evaluated by PT/OT therapy and will be going home and has support at home. Patient with incentive spirometer at the bedside recommend to continue using at least 10 times every hour while awake. Patient encouraged to continue with home medications and does have a follow-up appointment with Dr. Nino outpatient. Patient is doing relatively well and anticipating going home today. We will continue to follow with orthopedics during hospitalization. Thank you kindly for this consultation. The impression and plan of care has been dictated by Radha Alfonso, nurse practitioner as directed. Dr. Nikolay MD I have performed a history and examination and MDM of this patient, discussed the same with the dictator, and agree with the dictator's assessment and plan as written ,documented as a scribe. Based on total visit time, I have performed more than 50% of the visit. Any additional findings or plans will be noted. Past Medical History Past Medical History: Asthma, Osteoarthritis (OA), Thyroid Disorder History of Any Multi-Drug Resistant Organisms: None Reported Past Surgical History: Breast Surgery, Joint Replacement Additional Past Surgical History / Comment(s): left hip replacement; biopsy rt breast, colonoscopy, right knee arthroscopy Past Anesthesia/Blood Transfusion Reactions: Postoperative Nausea & Vomiting (PONV) Past Psychological History: Depression Smoking Status: Former smoker Past Alcohol Use History: None Reported Additional Past Alcohol Use History / Comment(s): QUIT SMOKING EARLY Past Drug Use History: None Reported - Past Family History Mother Family Medical History: Deep Vein Thrombosis (DVT) Medications and Allergies Home Medications Medication Instructions Recorded Confirmed Type Levothyroxine Sodium [Synthroid] 100 mcg PO DAILY 05/20/14 07/18/22 History Atorvastatin Calcium [Lipitor] 10 mg PO DAILY 04/26/20 07/18/22 History DULoxetine HCL [Cymbalta] 120 mg PO DAILY 04/26/20 07/18/22 History EPINEPHrine (Auto Inject) [Epipen] 0.3 mg IM ONCE PRN 04/26/20 07/18/22 History Ergocalciferol [Vitamin D2 50,000 unit PO MO 04/26/20 07/18/22 History (DRISDOL)] Balance Of Nature 2 tab PO TID 07/13/22 07/18/22 History Relief Factor 1 dose PO DAILY 07/13/22 07/18/22 History busPIRone HCl [Buspar] 20 mg PO DAILY 07/13/22 07/18/22 History Apixaban [Eliquis] 2.5 mg PO BID #60 tab 07/19/22 Rx Docusate [Colace] 100 mg PO DAILY #30 capsule 07/19/22 Rx HYDROcodone/APAP 7.5-325MG [[place] 1 each PO Q6HR PRN #28 tab 07/19/22 Rx 7.5] Ondansetron [Zofran] 4 mg PO Q8HR PRN #12 tab 07/19/22 Rx Allergies Allergy/AdvReac Type Severity Reaction Status Date / Time Penicillins Allergy Dyspnea Verified 07/18/22 06:34 Sulfa (Sulfonamide Allergy Dyspnea Verified 07/18/22 06:34 Antibiotics) Physical Exam Vitals: Vital Signs Temp Pulse Pulse Resp BP Pulse Ox 07/19/22 07:30 97.6 F 64 18 132/74 98 07/19/22 02:00 97.9 F 65 16 130/76 98 07/18/22 22:14 65 16 07/18/22 20:00 98.0 F 63 17 144/76 100 07/18/22 15:01 98.4 F 68 16 135/75 99 07/18/22 13:30 56 L 16 128/58 100 07/18/22 12:30 59 L 16 136/63 98 07/18/22 12:00 57 L 16 148/65 100 07/18/22 11:30 54 L 16 154/73 100 07/18/22 11:00 50 L 16 158/72 99 07/18/22 10:30 52 L 16 116/64 99 07/18/22 10:15 50 L 16 132/61 99 07/18/22 10:00 52 L 18 114/58 98 Intake and Output 07/18/22 07/19/22 07/19/22 22:59 06:59 14:59 Other: # Voids 1 2 Weight 70.2 kg Results CBC & Chem 7: 07/19/22 05:54
[2022-07-24] MEDS ORDERED: ERGOCALCIFEROL 1,250 MCG (50,000 IU) CAPSULE PO SCH (09:00)
== END 2022-07-19 13:24 | disposition home health service (06) ==
LOC: OR 05:54 → 4SSUR 09:47 → OR 07-19 13:24
PROVIDERS: ATTEND Orthopaedic Surgery
DX: M17.11 Unilateral primary osteoarthritis, right knee (principal); G89.18 Other acute postprocedural pain; J45.909 Unspecified asthma, uncomplicated; E07.9 Disorder of thyroid, unspecified; Z87.891 Personal history of nicotine dependence; Z82.49 Family history of ischemic heart disease and other diseases of the circulatory system; Z79.899 Other long term (current) drug therapy; Z88.0 Allergy status to penicillin; Z88.2 Allergy status to sulfonamides
CPT/HCPCS: 97116; 97162; 64999; 64448; 76942; 85025; 88300; 73560; 27447; C1713 ×2; C1776; C1751; J2250; J1100; J0690 ×3; J2405 ×2; J2795

== ENCOUNTER 2022-07-29 19:09 | Emergency (ER) | payer MEDICARE ==
[2022-07-29 20:50] LABS: Basophils % (A) 0 %; Eosinophils % (A) 0 %; HCT 43.8 % (34.0-46.0); HGB 14.4 gm/dL (11.4-16.0); Lymphocytes # (A) 1.3 k/uL (1.0-4.8); Lymphocytes % (A) 13 %; MCH 30.5 pg (25.0-35.0); MCV 92.4 fL (80.0-100.0); Mean Platelet Volume 7.5; Monocytes # (A) 0.3 k/uL (0-1.0); Monocytes % (A) 2 %; Neutrophils # (A) 8.6 k/uL (1.3-7.7); Neutrophils % (A) 83 %; Platelet Count 351 k/uL (150-450); RBC 4.74 m/uL (3.80-5.40); RDW 13.8 % (11.5-15.5); WBC 10.3 k/uL (3.8-10.6)
[2022-07-29 21:14] LABS: ALT 28 U/L (4-34); AST 30 U/L (14-36); African American GFR (CKD) >90 (>60 ml/min/1.73 sqM); Albumin 4.5 g/dL (3.5-5.0); Alcohol <10 mg/dL; Alkaline Phosphatase 228 U/L (38-126); Anion Gap 9 mmol/L; Blood Urea Nitrogen 26 mg/dL (7-17); Calcium 9.5 mg/dL (8.4-10.2); Carbon Dioxide 25 mmol/L (22-30); Chloride 106 mmol/L (98-107); Glucose 136 mg/dL (74-99); Lipase 83 U/L (23-300); Magnesium 2.1 mg/dL (1.6-2.3); Non-African American GFR(CKD) >90 (>60 ml/min/1.73 sqM); Potassium 4.3 mmol/L (3.5-5.1); Sodium 140 mmol/L (137-145); Total Bilirubin 0.6 mg/dL (0.2-1.3); Total Protein 7.4 g/dL (6.3-8.2)
[2022-07-29 21:41] LABS: Appearance,Urine Cloudy (Clear); Bacteria,Urine Many /hpf; Bilirubin,Urine Negative (Negative); Blood,Urine Negative (Negative); Color,Urine Yellow; Glucose,Urine (UA) Negative (Negative); Hyaline Casts,Urine 127 /lpf (0-2); Ketones,Urine 1+ (Negative); Leukocyte Esterase,Urine Large (Negative); Mucus,Urine Many /hpf; Nitrite,Urine Positive (Negative); PH, Urine 5.5 (5.0-8.0); Protein,Urine Trace (Negative); RBC,Urine 3 /hpf (0-5); Specific Gravity,Urine 1.026 (1.001-1.035); Squamous Epithelial Cell,Urine 3 /hpf (0-4); Urobilinogen,Urine <2.0 mg/dL (<2.0); WBC,Urine 19 /hpf (0-5)
[2022-07-29 21:42] VITALS: RESP 18
[2022-07-29 21:47] LABS: Amphetamine Screen,Urine Not Detected (NotDetected); Barbiturate Screen,Urine Not Detected (NotDetected); Benzodiazepines Screen,Urine Not Detected (NotDetected); Cocaine Screen,Urine Not Detected (NotDetected); Methadone Screen, Urine Not Detected (NotDetected); Opiate Screen,Urine Detected (NotDetected); Oxycodone Screen, Urine Not Detected (NotDetected); Phencyclidine Screen,Urine Not Detected (NotDetected); Tricyclic Antidepressant,Urine Not Detected (NotDetected); Urn Cannabinoid Scrn Not Detected (NotDetected)
[2022-07-29] MEDS ORDERED: CEPHALEXIN 500 MG CAP PO STA (22:11)
--- NOTE | 2022-07-29 22:18 | ED ---
General Adult HPI - General Chief complaint: Altered Mental Status Stated complaint: Altered Mental Status Time Seen by Provider: 07/29/22 19:21 Source: EMS Mode of arrival: EMS Limitations: altered mental status - History of Present Illness Initial comments: This is a 67-year-old female with a past medical history including recent right knee replacement, presents emergency department via EMS for altered mental status. It was reported that the patient took 2, temperature milligrams tablet of back within including her previously prescribed medications including Vistaril. The patient was found at home on the ground, with dilated pupils and acting confused. The patient's daughter was called and they had EMS bring the patient to the hospital. I evaluation, the patient was pleasantly confused and seemed intoxicated however denied EtOH at this time. The patient's daughter was at the bedside to provide the history and did state that the patient took 2 of the daughters baclofen tablets that were not prescribed to her. The patient herself denied any other acute pain or complaints at this time. The patient was ANO 4 on my evaluation but did appear intoxicated. - Related Data Home Medications Medication Instructions Recorded Confirmed Levothyroxine Sodium [Synthroid] 100 mcg PO DAILY 05/20/14 07/18/22 Atorvastatin Calcium [Lipitor] 10 mg PO DAILY 04/26/20 07/18/22 DULoxetine HCL [Cymbalta] 120 mg PO DAILY 04/26/20 07/18/22 EPINEPHrine (Auto Inject) [Epipen] 0.3 mg IM ONCE PRN 04/26/20 07/18/22 Ergocalciferol [Vitamin D2 50,000 unit PO MO 04/26/20 07/18/22 (DRISDOL)] Balance Of Nature 2 tab PO TID 07/13/22 07/18/22 Relief Factor 1 dose PO DAILY 07/13/22 07/18/22 busPIRone HCl [Buspar] 20 mg PO DAILY 07/13/22 07/18/22 Previous Rx's Medication Instructions Recorded Apixaban [Eliquis] 2.5 mg PO BID #60 tab 07/19/22 Docusate [Colace] 100 mg PO DAILY #30 capsule 07/19/22 HYDROcodone/APAP 7.5-325MG [[place] 1 each PO Q6HR PRN #28 tab 07/19/22 7.5] Ondansetron [Zofran] 4 mg PO Q8HR PRN #12 tab 07/19/22 Cephalexin [Keflex] 500 mg PO Q6HR 5 Days #20 cap 07/29/22 Allergies Allergy/AdvReac Type Severity Reaction Status Date / Time Penicillins Allergy Dyspnea Verified 07/29/22 19:21 Sulfa (Sulfonamide Allergy Dyspnea Verified 07/29/22 19:21 Antibiotics) Review of Systems ROS Statement: Those systems with pertinent positive or pertinent negative responses have been documented in the HPI. ROS Other: All systems not noted in ROS Statement are negative. Past Medical History Past Medical History: Asthma, Osteoarthritis (OA), Thyroid Disorder History of Any Multi-Drug Resistant Organisms: None Reported Past Surgical History: Breast Surgery, Joint Replacement Additional Past Surgical History / Comment(s): left hip replacement; biopsy rt breast, colonoscopy, right knee arthroscopy Past Anesthesia/Blood Transfusion Reactions: Postoperative Nausea & Vomiting (PONV) Past Psychological History: Depression Smoking Status: Former smoker Past Alcohol Use History: None Reported Past Drug Use History: None Reported - Past Family History Mother Family Medical History: Deep Vein Thrombosis (DVT) General Exam Limitations: altered mental status General appearance: alert, in no apparent distress, appears intoxicated Head exam: Present: atraumatic, normocephalic Eye exam: Present: normal appearance, PERRL Pupils: Present: normal accommodation ENT exam: Present: normal exam, normal oropharynx, mucous membranes moist Neck exam: Present: normal inspection, full ROM Respiratory exam: Present: normal lung sounds bilaterally Cardiovascular Exam: Present: regular rate, normal rhythm, normal heart sounds GI/Abdominal exam: Present: soft, normal bowel sounds Extremities exam: Present: normal inspection, full ROM, normal capillary refill Back exam: Present: normal inspection, full ROM Neurological exam: Present: alert, oriented X3, CN II-XII intact Psychiatric exam: Present: normal affect, normal mood Skin exam: Present: warm, dry Course Vital Signs 07/29/22 07/29/22 19:17 21:40 Temperature 97.0 F L 97.5 F L Pulse Rate 61 61 Respiratory 17 18 Rate Blood Pressure 136/52 140/69 O2 Sat by Pulse 98 97 Oximetry Medical Decision Making - Medical Decision Making The patient was seen and evaluated emergency department. Physical exam, the patient was resting in bed, pleasantly confused however was able to answer all questions appropriately. The patient did appear intoxicated but refused and denied EtOH. Vital signs on admission were stable and within normal limits. Laboratory workup was obtained and showed positive UTI and positive benzodiazepines in the urine drug screen however the remainder of the labs were within normal limits. The patient likely was altered secondary to UTI in the setting of further medications including baclofen. The patient continued to remain stable and was given a prescription for Keflex to be taken at home. The patient was also given a dose of Keflex in the emergency department. The patient was deemed stable for discharge and the patient's daughter was told of these results. The patient was discharged home in stable condition with her daughter and told to follow back to the emergency department if her symptoms do not resolve completely in the next 24 hours. The patient's daughter was agreeable to this and did take the patient home in stable condition. - Lab Data Result diagrams: 07/29/22 20:25 07/29/22 20:25 Lab Results 07/29/22 07/29/22 07/29/22 Range/Units 20:25 20:25 20:25 WBC 10.3 (3.8-10.6) k/uL RBC 4.74 (3.80-5.40) m/uL Hgb 14.4 (11.4-16.0) gm/dL Hct 43.8 (34.0-46.0) % MCV 92.4 (80.0-100.0) fL MCH 30.5 (25.0-35.0) pg MCHC 33.0 (31.0-37.0) g/dL RDW 13.8 (11.5-15.5) % Plt Count 351 (150-450) k/uL MPV 7.5 Neutrophils % 83 % Lymphocytes % 13 % Monocytes % 2 % Eosinophils % 0 % Basophils % 0 % Neutrophils # 8.6 H (1.3-7.7) k/uL Lymphocytes # 1.3 (1.0-4.8) k/uL Monocytes # 0.3 (0-1.0) k/uL Eosinophils # 0.0 (0-0.7) k/uL Basophils # 0.0 (0-0.2) k/uL Sodium 140 (137-145) mmol/L Potassium 4.3 (3.5-5.1) mmol/L Chloride 106 (98-107) mmol/L Carbon Dioxide 25 (22-30) mmol/L Anion Gap 9 mmol/L BUN 26 H (7-17) mg/dL Creatinine 0.55 (0.52-1.04) mg/dL Est GFR (CKD-EPI)AfAm >90 (>60 ml/min/1.73 sqM) Est GFR (CKD-EPI)NonAf >90 (>60 ml/min/1.73 sqM) Glucose 136 H (74-99) mg/dL Calcium 9.5 (8.4-10.2) mg/dL Magnesium 2.1 (1.6-2.3) mg/dL Total Bilirubin 0.6 (0.2-1.3) mg/dL AST 30 (14-36) U/L ALT 28 (4-34) U/L Alkaline Phosphatase 228 H (38-126) U/L Total Protein 7.4 (6.3-8.2) g/dL Albumin 4.5 (3.5-5.0) g/dL Lipase 83 (23-300) U/L Urine Color Yellow Urine Appearance Cloudy H (Clear) Urine pH 5.5 (5.0-8.0) Ur Specific [place] 1.026 (1.001-1.035) Urine Protein Trace H (Negative) Urine Glucose (UA) Negative (Negative) Urine Ketones 1+ H (Negative) Urine Blood Negative (Negative) Urine Nitrite Positive H (Negative) Urine Bilirubin Negative (Negative) Urine Urobilinogen <2.0 (<2.0) mg/dL Ur Leukocyte Esterase Large H (Negative) Urine RBC 3 (0-5) /hpf Urine WBC 19 H (0-5) /hpf Urine WBC Clumps Rare H (None) /hpf Ur Squamous Epith Cells 3 (0-4) /hpf Urine Bacteria Many H (None) /hpf Hyaline Casts 127 H (0-2) /lpf Urine Mucus Many H (None) /hpf Urine Opiates Screen Detected H (NotDetected) Ur Oxycodone Screen Not Detected (NotDetected) Urine Methadone Screen Not Detected (NotDetected) Ur Propoxyphene Screen Not Detected (NotDetected) Ur Barbiturates Screen Not Detected (NotDetected) U Tricyclic Antidepress Not Detected (NotDetected) Ur Phencyclidine Scrn Not Detected (NotDetected) Ur Amphetamines Screen Not Detected (NotDetected) U Methamphetamines Scrn Not Detected (NotDetected) U Benzodiazepines Scrn Not Detected (NotDetected) Urine Cocaine Screen Not Detected (NotDetected) U Marijuana (THC) Screen Not Detected (NotDetected) Serum Alcohol <10 mg/dL Disposition Clinical Impression: AMS (altered mental status), UTI (urinary tract infection) Disposition: HOME SELF-CARE Condition: Stable Instructions (If sedation given, give patient instructions): Altered Mental Status (ED), Urinary Tract Infection in Women (DC) Prescriptions: Cephalexin [Keflex] 500 mg PO Q6HR 5 Days #20 cap Is patient prescribed a controlled substance at d/c from ED?: No Referrals: Mk Nino MD [Primary Care Provider] - 1-2 days Time of Disposition: 22:18
[2022-07-29 22:26] VITALS: BP 128/71; PULSE 68; TEMP 97.6
== END 2022-07-29 22:37 | disposition home or self-care (01) ==
LOC: EC 19:09
DX: R41.82 Altered mental status, unspecified (principal); N39.0 Urinary tract infection, site not specified; J45.909 Unspecified asthma, uncomplicated; E07.9 Disorder of thyroid, unspecified; F32.A Depression, unspecified; Z88.0 Allergy status to penicillin; Z88.2 Allergy status to sulfonamides; Z87.891 Personal history of nicotine dependence; Z79.890 Hormone replacement therapy; Z79.899 Other long term (current) drug therapy
CPT/HCPCS: 36415; 80053; 83690; 83735; 85025; 81001; 80306; 87086; 99285; G0480; 80320

== ENCOUNTER → 2022-08-14 | Outpatient (CLI) | payer MEDICARE ==
--- NOTE | 2022-08-14 18:13 | CT ---
EXAMINATION TYPE: CT brain wo con DATE OF EXAM: 08/14/2022 HISTORY: AMS CT DLP: 1047.1 mGycm. Automated Exposure Control for Dose Reduction was Utilized. TECHNIQUE: CT scan of the head is performed without contrast. COMPARISON: None. FINDINGS: There is no acute intracranial hemorrhage or midline shift identified. There is mild diff use ventricular and sulcal prominence consistent with diffuse age-related cerebral atrophy. Emmanuel-whit e matter differentiation is fairly well maintained. Some patchy cerumen in the deep right external au ditory canal is seen. The globes are intact and the visualized sinuses are clear. IMPRESSION: No acute intracranial hemorrhage or midline shift. There is mild diffuse age-related ce rebral atrophy noted.
== END | disposition home or self-care (01) ==
LOC: RADCTMAIN 16:24
PROVIDERS: ATTEND Internal Medicine Geriatric Medicine
DX: G31.1 Senile degeneration of brain, not elsewhere classified (principal); R41.82 Altered mental status, unspecified
CPT/HCPCS: 70450

== ENCOUNTER → 2023-03-13 | Outpatient (CLI) | payer MEDICARE ==
--- NOTE | 2023-03-13 12:37 | MM ---
Reason for Exam: Screening (asymptomatic). Last mammogram was performed 1 year(s) and 1 month(s) ago. Patient History: Menarche at age 18. First Full-Term at age 20. Postmenopausal. Core Biopsy on the Right side. Excisional Biopsy on the Right side. Excisional Biopsy on the Left side. 11/06/2016, Benign Core Biopsy on the right side. 10/17/2016, High risk Core Biopsy on the right side. 03/10/2002, Benign Stereotactic Core Biopsy on the right side. Maternal cousin had breast cancer, age 60. Paternal cousin had breast cancer, age 70. Risk Values: Lillie 5 year model risk: 1.7%. NCI Lifetime model risk: 6.0%. Prior Study Comparison: 10/30/2019 Bilateral Screening Mammogram, [facility]. 11/29/2020 Bilateral Screening Mammogram, [facility]. 02/16/2022 Bilateral MG 3D screening mammo w/cad, [facility]. Tissue Density: There are scattered fibroglandular densities. Findings: Analyzed By CAD. There is no suspicious group of microcalcifications or new suspicious mass in either breast. Overall Assessment: Negative, BI-RAD 1 Management: Screening Mammogram of both breasts in [address] [facility] will attempt to contact patient to return for supplemental views and ultrasound if indicated. Patient should continue monthly self-breast exams. A clinical breast exam by your physician is recommended on an annual basis. This exam should not preclude additional follow-up of suspicious palpable abnormalities. Note on Lillie scores and lifetime risk: 1. A Lillie score greater than 3% is considered moderate risk. If this is the case, consider specialist referral to assess eligibility for a risk reducing agent. 2. If overall lifetime risk for the development of breast cancer is 20% or higher, the patient may qualify for future screening with alternating mammogram and breast MRI. Electronically signed and approved by: Valente Guerra DO
== END | disposition home or self-care (01) ==
LOC: RADMAMWWP 11:11
PROVIDERS: ATTEND Internal Medicine Geriatric Medicine
DX: Z12.31 Encounter for screening mammogram for malignant neoplasm of breast (principal); Z78.0 Asymptomatic menopausal state; Z80.3 Family history of malignant neoplasm of breast
CPT/HCPCS: 77063; 77067

== ENCOUNTER 2023-07-18 09:24 | Day surgery (SDC) | payer MEDICARE ==
[2023-07-13 12:30] VITALS: BMI 25.0
[2023-07-18] MEDS: LACTATED RINGERS 1,000 ML IV SCH ×2 (09:43→10:15)
[2023-07-18 10:11] VITALS: TEMP 97
[2023-07-18] MEDS ORDERED: PROPOFOL 10 MG/ML 20 ML VIAL IV ONE (10:23)
[2023-07-18] MEDS ORDERED: LIDOCAINE 1% INJ 10MG/ML (20 ML MDV) ONE (10:23)
--- NOTE | 2023-07-18 10:42 | P.PCN ---
Date of Procedure: 07/18/23 Procedure(s) Performed: BRIEF HISTORY: Patient is a 68-year-old pleasant white female scheduled for an elective colonoscopy as a part of evaluation of screening for colon cancer/positive cologuard. PROCEDURE PERFORMED: Colonoscopy with biopsy. PREOPERATIVE DIAGNOSIS: Screening for colon cancer/positive cologuard. IV sedation per Anesthesia. PROCEDURE: After informed consent was obtained, the patient, was brought into the endoscopy unit. IV sedation was administered by Anesthesia under continuous monitoring. Digital rectal examination was normal. Initially the Olympus CF-160 flexible video colonoscope was then inserted in the rectum, gradually advanced into the cecum without any difficulty. Careful examination was performed as the scope was gradually being withdrawn. Ileocecal valve and the appendiceal orifice were visualized and appeared normal. Prep was excellent. Mucosa of the cecum, ascending colon, transverse colon, descending colon, appeared normal. In the descending colon there was a 5 limited polyp that was removed by cold biopsy. In the sigmoid: There was another 5 limited polyp that was removed by cold biopsy. Rest of the sigmoid colon, and rectum appeared normal. Retroflexion was performed in the rectum and no lesions were seen. The patient tolerated the procedure well. IMPRESSION: 4 mm descending colon polyp status post cold biopsy 5 mm sigmoid ; polyp status post cold biopsy RECOMMENDATIONS: Findings of this examination were discussed with the patient is a family.She was advised to follow up with the biopsy result. If the biopsy result adenoma she can have a repeat colonoscopy in 5 years..
[2023-07-18 11:02] VITALS: RESP 16
[2023-07-18 11:28] VITALS: BP 134/84; PULSE 56
== END 2023-07-18 11:34 | disposition home or self-care (01) ==
LOC: ORWHC2ENDO 09:24
PROVIDERS: ATTEND Internal Medicine Gastroenterology
DX: Z12.11 Encounter for screening for malignant neoplasm of colon (principal); D12.4 Benign neoplasm of descending colon; K51.40 Inflammatory polyps of colon without complications; J45.909 Unspecified asthma, uncomplicated; E07.9 Disorder of thyroid, unspecified; Z88.0 Allergy status to penicillin; Z88.2 Allergy status to sulfonamides; Z98.890 Other specified postprocedural states; Z79.899 Other long term (current) drug therapy
CPT/HCPCS: 88305; 45380; J2001; J2704

== ENCOUNTER 2023-11-07 08:47 | Emergency (ER) | payer MEDICARE ==
[2023-11-07 09:17] VITALS: RESP 18; TEMP 97.7
[2023-11-07 09:38] LABS: Basophils % (A) 1 %; Eosinophils # (A) 0.1 k/uL (0-0.7); Eosinophils % (A) 2 %; HCT 47.5 % (34.0-46.0); HGB 16.4 gm/dL (11.4-16.0); Lymphocytes # (A) 1.7 k/uL (1.0-4.8); Lymphocytes % (A) 24 %; MCH 30.1 pg (25.0-35.0); MCHC 34.6 g/dL (31.0-37.0); Monocytes # (A) 0.4 k/uL (0-1.0); Monocytes % (A) 5 %; Neutrophils # (A) 4.7 k/uL (1.3-7.7); Neutrophils % (A) 66 %; Platelet Count 252 k/uL (150-450); RBC 5.46 m/uL (3.80-5.40); RDW 14.1 % (11.5-15.5)
--- NOTE | 2023-11-07 09:45 | ED ---
General Adult HPI - General Chief complaint: Shortness of Breath Stated complaint: SOB Time Seen by Provider: 11/07/23 09:02 Source: patient, RN notes reviewed, old records reviewed Mode of arrival: ambulatory Limitations: no limitations - History of Present Illness Initial comments: 68 yo female presenting with sore throat, laryngitis, cough. Patient does report some mild dyspnea. She is being treated for strep pharyngitis with oral antibiotic. States her symptoms are not improving. They have been present for the past several days. No central chest pain. She does have a cough. No fever. - Related Data Home Medications Medication Instructions Recorded Confirmed Levothyroxine Sodium [Synthroid] 100 mcg PO DAILY 05/20/14 07/18/23 Atorvastatin Calcium [Lipitor] 10 mg PO DAILY 04/26/20 07/18/23 DULoxetine HCL [Cymbalta] 120 mg PO DAILY 04/26/20 07/18/23 Balance Of Nature 3 tab PO DAILY 07/13/22 07/18/23 ARIPiprazole [Abilify] 2 mg PO DAILY 07/13/23 07/18/23 Albuterol Inhaler [Ventolin Hfa 1 - 2 puff INHALATION Q6H PRN 07/13/23 07/18/23 Inhaler] hydrOXYzine HCL [Hydroxyzine HCl] 25 mg PO HS 07/13/23 07/18/23 Previous Rx's Medication Instructions Recorded Albuterol Inhaler [Ventolin Hfa 1 - 2 puff INHALATION Q4HR PRN #1 11/07/23 Inhaler] each methylPREDNISolone Dose Pack 4 mg PO DIRECTED #21 packet 11/07/23 [Medrol Dose Pack] Allergies Allergy/AdvReac Type Severity Reaction Status Date / Time bee venom protein (honey bee) Allergy Unknown Unknown Verified 07/18/23 09:40 Penicillins Allergy Dyspnea Verified 07/18/23 09:40 Sulfa (Sulfonamide Allergy Dyspnea Verified 07/18/23 09:40 Antibiotics) Review of Systems ROS Statement: Those systems with pertinent positive or pertinent negative responses have been documented in the HPI. ROS Other: All systems not noted in ROS Statement are negative. Past Medical History Past Medical History: Asthma, Osteoarthritis (OA), Thyroid Disorder Additional Past Medical History / Comment(s): POSITIVE COLOGARD History of Any Multi-Drug Resistant Organisms: None Reported Past Surgical History: Breast Surgery, Joint Replacement Additional Past Surgical History / Comment(s): left hip replacement; biopsy rt breast, colonoscopy, right knee arthroscopy, total right knee (jul 2022) Past Anesthesia/Blood Transfusion Reactions: Postoperative Nausea & Vomiting (PONV) Past Psychological History: Depression Smoking Status: Former smoker Past Alcohol Use History: None Reported Past Drug Use History: None Reported - Past Family History Mother Family Medical History: Deep Vein Thrombosis (DVT) General Exam Limitations: no limitations General appearance: alert, in no apparent distress Head exam: Present: atraumatic, normocephalic Eye exam: Present: normal appearance, PERRL ENT exam: Absent: normal oropharynx (Pharyngeal erythema, no tonsillar swelling or exudate) Respiratory exam: Present: wheezes. Absent: respiratory distress, stridor, chest wall tenderness Cardiovascular Exam: Present: regular rate, normal rhythm GI/Abdominal exam: Present: soft. Absent: distended, tenderness, guarding Extremities exam: Present: normal inspection, normal capillary refill Neurological exam: Present: alert, oriented X3, CN II-XII intact. Absent: motor sensory deficit Psychiatric exam: Present: normal affect, normal mood Skin exam: Present: warm, dry, intact. Absent: cyanosis, diaphoretic Course Vital Signs 11/07/23 11/07/23 08:51 08:57 Temperature 97.7 F Pulse Rate 86 Respiratory 18 18 Rate Blood Pressure 112/70 O2 Sat by Pulse 98 Oximetry Medical Decision Making - Medical Decision Making Was pt. sent in by a medical professional or institution (, PA, REROLLING MACHINE OPERATOR, urgent care, hospital, or assisted...) When possible be specific @ -[No] Did you speak to anyone other than the patient for history (EMS, parent, family, police, friend...)? What history was obtained from this source @ -[No] Did you review nursing and triage notes (agree or disagree)? Why? @ -[I reviewed and agree with nursing and triage notes] Were old charts reviewed (outside hosp., previous admission, EMS record, old EKG, old radiological studies, urgent care reports/EKG's, assisted records)? Report findings @ -[No old charts were reviewed] Differential Diagnosis (chest pain, altered mental status, abdominal pain women, abdominal pain men, vaginal bleeding, weakness, fever, dyspnea, syncope, headache, dizziness, GI bleed, back pain, seizure, CVA, palpatations, mental health, musculoskeletal)? @ -Pharyngitis, laryngitis, asthma EKG interpreted by me (3pts min.). @ -Sinus rhythm rate of 66 NV interval 153 QRS duration 81, QTc [address] segment elevation X-rays interpreted by me (1pt min.). @ -Chest x-ray negative for pneumothorax, no focal pneumonia CT interpreted by me (1pt min.). @ -[None done] U/S interpreted by me (1pt. min.). @ -[None done] What testing was considered but not performed or refused? (CT, X-rays, U/S, labs)? Why? @ -[None] What meds were considered but not given or refused? Why? @ -[None] Did you discuss the management of the patient with other professionals (professionals i.e. , PA, REROLLING MACHINE OPERATOR, lab, RT, psych nurse, social media intern, blunger machine operator, teacher, soil science technical officer, block and case maker)? Give summary @ -[No] Was smoking cessation discussed for >3mins.? @ -[No] Was critical care preformed (if so, how long)? @ -[No] Were there social determinants of health that impacted care today? How? (Homeles sness, low income, unemployed, alcoholism, drug addiction, transportation, low edu. Level, literacy, decrease access to med. care, shelter, rehab)? @ -[No] Was there de-escalation of care discussed even if they declined (Discuss DNR or withdrawal of care, Hospice)? DNR status @ -[No] What co-morbidities impacted this encounter? (DM, HTN, Smoking, COPD, CAD, Cancer, CVA, ARF, Chemo, Hep., AIDS, mental health diagnosis, sleep apnea, morbid obesity)? @ -Asthma Was patient admitted / discharged? Hospital course, mention meds given and route, prescriptions, significant lab abnormalities, going to OR and other pertinent info. @ -68-year-old female with sore throat, laryngitis, mild dyspnea. Patient does have wheezing bilaterally without respiratory distress. Chest x-ray is clear. She has a normal CBC with the exception of an elevated hemoglobin at 16.4, normal electrolytes, negative viral panel. She will be prescribed steroids and albuterol for asthma exacerbation. Undiagnosed new problem with uncertain prognosis? @ -[No] Drug Therapy requiring intensive monitoring for toxicity (Heparin, Nitro, Insulin, Cardizem)? @ -[No] Were any procedures done? @ -No Diagnosis/symptom? @ -Pharyngitis, laryngitis, asthma Acute, or Chronic, or Acute on Chronic? @ -Acute Uncomplicated (without systemic symptoms) or Complicated (systemic symptoms)? @ -Default Side effects of treatment? @ -No Exacerbation, Progression, or Severe Exacerbation? @ -No Poses a threat to life or bodily function? How? (Chest pain, USA, ND, pneumonia, PE, COPD, DKA, ARF, appy, cholecystitis, CVA, Diverticulitis, Homicidal, Suicidal, threat to staff... and all critical care pts) @ -Low risk at this time - Lab Data Result diagrams: 11/07/23 09:28 11/07/23 09:28 Lab Results 11/07/23 11/07/23 11/07/23 Range/Units 09:07 09:28 09:28 WBC 7.0 (3.8-10.6) k/uL RBC 5.46 H (3.80-5.40) m/uL Hgb 16.4 H (11.4-16.0) gm/dL Hct 47.5 H (34.0-46.0) % MCV 87.0 (80.0-100.0) fL MCH 30.1 (25.0-35.0) pg MCHC 34.6 (31.0-37.0) g/dL RDW 14.1 (11.5-15.5) % Plt Count 252 (150-450) k/uL MPV 7.0 Neutrophils % 66 % Lymphocytes % 24 % Monocytes % 5 % Eosinophils % 2 % Basophils % 1 % Neutrophils # 4.7 (1.3-7.7) k/uL Lymphocytes # 1.7 (1.0-4.8) k/uL Monocytes # 0.4 (0-1.0) k/uL Eosinophils # 0.1 (0-0.7) k/uL Basophils # 0.0 (0-0.2) k/uL PT 10.2 (10.0-12.5) sec INR 0.9 (<1.2) APTT 24.3 (22.0-30.0) sec Sodium (137-145) mmol/L Potassium (3.5-5.1) mmol/L Chloride (98-107) mmol/L Carbon Dioxide (22-30) mmol/L Anion Gap mmol/L BUN (7-17) mg/dL Creatinine (0.52-1.04) mg/dL Est GFR (CKD-EPI)AfAm (>60 ml/min/1.73 sqM) Est GFR (CKD-EPI)NonAf (>60 ml/min/1.73 sqM) Glucose (74-99) mg/dL Calcium (8.4-10.2) mg/dL Magnesium (1.6-2.3) mg/dL Total Bilirubin (0.2-1.3) mg/dL AST (14-36) U/L ALT (4-34) U/L Alkaline Phosphatase (38-126) U/L Troponin I (0.000-0.034) ng/mL NT-Pro-B Natriuret Pep pg/mL Total Protein (6.3-8.2) g/dL Albumin (3.5-5.0) g/dL Influenza Type A (PCR) Not Detected (Not Detectd) Influenza Type B (PCR) Not Detected (Not Detectd) RSV (PCR) Not Detected (Not Detectd) SARS-CoV-2 (PCR) Not Detected (Not Detectd) 11/07/23 11/07/23 Range/Units 09:28 09:28 WBC (3.8-10.6) k/uL RBC (3.80-5.40) m/uL Hgb (11.4-16.0) gm/dL Hct (34.0-46.0) % MCV (80.0-100.0) fL MCH (25.0-35.0) pg MCHC (31.0-37.0) g/dL RDW (11.5-15.5) % Plt Count (150-450) k/uL MPV Neutrophils % % Lymphocytes % % Monocytes % % Eosinophils % % Basophils % % Neutrophils # (1.3-7.7) k/uL Lymphocytes # (1.0-4.8) k/uL Monocytes # (0-1.0) k/uL Eosinophils # (0-0.7) k/uL Basophils # (0-0.2) k/uL PT (10.0-12.5) sec INR (<1.2) APTT (22.0-30.0) sec Sodium 138 (137-145) mmol/L Potassium 4.5 (3.5-5.1) mmol/L Chloride 112 H (98-107) mmol/L Carbon Dioxide 20 L (22-30) mmol/L Anion Gap 6 mmol/L BUN 17 (7-17) mg/dL Creatinine 0.53 (0.52-1.04) mg/dL Est GFR (CKD-EPI)AfAm >90 (>60 ml/min/1.73 sqM) Est GFR (CKD-EPI)NonAf >90 (>60 ml/min/1.73 sqM) Glucose 112 H (74-99) mg/dL Calcium 9.1 (8.4-10.2) mg/dL Magnesium 2.1 (1.6-2.3) mg/dL Total Bilirubin 0.9 (0.2-1.3) mg/dL AST 36 (14-36) U/L ALT 28 (4-34) U/L Alkaline Phosphatase 201 H (38-126) U/L Troponin I <0.012 (0.000-0.034) ng/mL NT-Pro-B Natriuret Pep 108 pg/mL Total Protein 7.1 (6.3-8.2) g/dL Albumin 3.9 (3.5-5.0) g/dL Influenza Type A (PCR) (Not Detectd) Influenza Type B (PCR) (Not Detectd) RSV (PCR) (Not Detectd) SARS-CoV-2 (PCR) (Not Detectd) Disposition Clinical Impression: Asthma with acute exacerbation, Laryngitis Disposition: HOME SELF-CARE Condition: Good Instructions (If sedation given, give patient instructions): Asthma (ED) Prescriptions: methylPREDNISolone Dose Pack [Medrol Dose Pack] 4 mg PO DIRECTED #21 packet Albuterol Inhaler [Ventolin Hfa Inhaler] 1 - 2 puff INHALATION Q4HR PRN #1 each PRN Reason: Shortness Of Breath Is patient prescribed a controlled substance at d/c from ED?: No Referrals: Mk Nino MD [Primary Care Provider] - 1-2 days Time of Disposition: 10:37
[2023-11-07 09:47] LABS: INR 0.9 (<1.2); Partial Thromboplastin Time 24.3 sec (22.0-30.0); Prothrombin Time 10.2 sec (10.0-12.5)
[2023-11-07 10:04] LABS: ALT 28 U/L (4-34); African American GFR (CKD) >90 (>60 ml/min/1.73 sqM); Albumin 3.9 g/dL (3.5-5.0); Anion Gap 6 mmol/L; Blood Urea Nitrogen 17 mg/dL (7-17); Calcium 9.1 mg/dL (8.4-10.2); Carbon Dioxide 20 mmol/L (22-30); Chloride 112 mmol/L (98-107); Glucose 112 mg/dL (74-99); Non-African American GFR(CKD) >90 (>60 ml/min/1.73 sqM); Sodium 138 mmol/L (137-145); Total Bilirubin 0.9 mg/dL (0.2-1.3); Total Protein 7.1 g/dL (6.3-8.2)
[2023-11-07 10:05] LABS: AST 36 U/L (14-36); Alkaline Phosphatase 201 U/L (38-126); Magnesium 2.1 mg/dL (1.6-2.3); Potassium 4.5 mmol/L (3.5-5.1)
[2023-11-07 10:08] LABS: NT-Pro-B-Type Natriuretic Pept 108 pg/mL
--- NOTE | 2023-11-07 10:13 | XR ---
EXAMINATION TYPE: XR chest 2V DATE OF EXAM: 11/07/2023 COMPARISON: 04/26/2020 HISTORY: 68-year-old female shortness of breath TECHNIQUE: PA and lateral views FINDINGS: Heart normal size. Aorta and pulmonary vasculature are within normal limits. Mild hyperinflation. No consolidation or pleural effusion. IMPRESSION: Mild hyperinflation may relate to depth of inspiration underlying emphysema. Otherwise, no acute proc ess.
[2023-11-07 11:03] VITALS: BP 110/68; PULSE 84
== END 2023-11-07 10:59 | disposition home or self-care (01) ==
LOC: EC 08:47
DX: J45.901 Unspecified asthma with (acute) exacerbation (principal); J04.0 Acute laryngitis; E07.9 Disorder of thyroid, unspecified; F32.A Depression, unspecified; Z87.891 Personal history of nicotine dependence; Z79.899 Other long term (current) drug therapy; Z79.890 Hormone replacement therapy; Z91.030 Bee allergy status; Z88.0 Allergy status to penicillin; Z88.2 Allergy status to sulfonamides; Z20.822 Contact with and (suspected) exposure to COVID-19
CPT/HCPCS: 36415; 71046; 80053; 83735; 83880; 84484; 85025; 85610; 85730; 87636; 93005; 99285

== ENCOUNTER → 2024-03-20 | Outpatient (CLI) | payer MEDICARE ==
--- NOTE | 2024-03-20 23:51 | BD ---
EXAMINATION TYPE: Axial Bone Density DATE OF EXAM: 03/20/2024 CLINICAL HISTORY: 68 years old Female. ICD-10 CODE: M89.9 DISORDER OF BONE Height: 66 Weight: 158.4 FRAX RISK QUESTIONS: Alcohol (3 or more units per day): no Family History (Parent hip fracture): no Glucocorticoids (More than 3mos): no (Ex: prednisone, prednisolone, methylprednisolone, dexamethasone, and hydrocortisone). History of Fracture in Adulthood: no Secondary Osteoporosis: 1. Type 1 Diabetes: no 2. Hyperthyroidism: no 3. Menopause before 45: no 4. Malnutrition: no 5. Chronic liver disease: no Rheumatoid Arthritis: no Current Tobacco Use: no RISK FACTORS HISTORY OF: Surgery to Spine/Hip(right/left)/Wrist (right/left): 2013 hip replaced/ left MEDICATIONS: Thyroid Medications: levothyroxine How Lon years EXAM MEASUREMENTS: Bone mineral densitometry was performed using the [employer] System. Bone mineral density as measured about the Lumbar spine is: ----- L1-L4(G/cm2): 1.138 T Score Values are as follows: ----- L1: -0.3 ----- L2: -1.1 ----- L3: -0.1 ----- L4: -0.2 ----- L1-L4: -0.4 Z Score Values are as follows: ----- L1: 1.1 ----- L2: 0.3 ----- L3: 1.3 ----- L4: 1.2 ----- L1-L4: 1.0 Bone mineral density has: decreased -5.1 % since study of: 11.29.2020 Bone mineral density about the R hip (g/cm2): 0.879 T Score values are as follows: -----R Neck: -1.6 -----R Total: -1.0 Z Score values are as follows: -----R Neck: -0.1 -----R Total: 0.1 Bone mineral density has: decreased -2.4 % since study of: 11.29.2020 FRAX%s: The graph provided illustrates a 9.8 % chance for a major osteoporotic fx and a 1.3% chance f or the hips probability for fx in 10 years time. IMPRESSION: Osteopenia (T Score between -2.5 and -1). There is slightly increased risk of fracture and the patient may be considered for treatment. Re-Screen 2-5 years. NOTE: T-SCORE=SD OF THE YOUNG ADULT MEAN.
--- NOTE | 2024-03-23 12:31 | MM ---
Reason for Exam: Screening (asymptomatic). Last screening mammogram was performed 12 month(s) ago. Patient History: Menarche at age 18. First Full-Term at age 20. Postmenopausal. Core Biopsy on the Right side. Excisional Biopsy on the Right side. Excisional Biopsy on the Left side. 11/06/2016, Benign Core Biopsy on the right side. 10/17/2016, High risk Core Biopsy on the right side. 03/10/2002, Benign Stereotactic Core Biopsy on the right side. Maternal cousin had breast cancer, age 60. Paternal cousin had breast cancer, age 70. Risk Values: Lillie 5 year model risk: 1.7%. NCI Lifetime model risk: 5.7%. Prior Study Comparison: 09/28/2016 Bilateral Screening Mammogram, [facility]. 10/06/2016 Right Diagnostic Mammogram, [facility]. 05/17/2017 Right Diagnostic Mammogram, [facility]. 10/23/2017 Bilateral Screening Mammogram, [facility]. 10/24/2018 Bilateral Screening Mammogram, [facility]. 10/30/2019 Bilateral Screening Mammogram, [facility]. 11/29/2020 Bilateral Screening Mammogram, [facility]. 02/16/2022 Bilateral MG 3D screening mammo w/cad, [facility]. 03/13/2023 Bilateral MG 3D screening mammo w/cad, [facility]. Tissue Density: There are scattered areas of fibroglandular density. Findings: Analyzed By CAD. The pattern is symmetrical. No significant interval change. There are a few scattered calcifications greater on the right. Core marker is within the right breast. No suspicious groups of microcalcifications, spiculated or lobular masses, architectural distortion or other secondary signs of malignancy are mammographically apparent. Overall Assessment: Benign, BI-RAD 2 Management: Screening Mammogram of both breasts in 1 year. A negative mammogram report should not preclude additional follow up of suspicious palpable abnormalities. Patient should continue monthly self breast exam. A clinical breast exam by your physician is recommended on an annual basis and results should be correlated with mammographic findings. Note on Lillie scores and lifetime risk: 1. A Lillie score greater than 3% is considered moderate risk. If this is the case, consider specialist referral to assess eligibility for a risk reducing agent. 2. If overall lifetime risk for the development of breast cancer is 20% or higher, the patient may qualify for future screening with alternating mammogram and breast MRI. Electronically signed and approved by: Edy Villareal D.O. Radiologis
== END | disposition home or self-care (01) ==
LOC: RADMAMWWP 12:18
PROVIDERS: ATTEND Internal Medicine Geriatric Medicine
DX: Z12.31 Encounter for screening mammogram for malignant neoplasm of breast (principal); R92.323 Mammographic fibroglandular density, bilateral breasts; M85.89 Other specified disorders of bone density and structure, multiple sites; Z78.0 Asymptomatic menopausal state; Z80.3 Family history of malignant neoplasm of breast
CPT/HCPCS: 77063; 77067; 77080

== ENCOUNTER → 2024-06-10 | Outpatient (CLI) | payer MEDICARE ==
--- NOTE | 2024-06-10 17:48 | CA ---
Transthoracic Echo Report Name: Sherley Guo Age: 68 Gender: F : 1955 Exam Date: 06/10/2024 15:00 Exam Location: [facility] Ht (in): 66 Wt (lb): 155 Ordering Physician: Mk Nino MD Attending/Referring Phys: Kamila Dennison [facility] [employer] Nathalie Holloway RDCS Procedure CPT: Indications: R00.2 palpitations Cardiac Hx: Technical Quality: Fair Contrast 1: Total Dose (mL): Contrast 2: Total Dose (mL): MEASUREMENTS (Male / Female) Normal Values 2D ECHO LV Diastolic Diameter PLAX 3.4 cm 4.2 - 5.9 / 3.9 - 5.3 cm LV Systolic Diameter PLAX 2.1 cm IVS Diastolic Thickness 1.1 cm 0.6 - 1.0 / 0.6 - 0.9 cm LVPW Diastolic Thickness 1.1 cm 0.6 - 1.0 / 0.6 - 0.9 cm LV Relative Wall Thickness 0.7 RV Internal Dim ED PLAX 2.4 cm LA Systolic Diameter LX 2.8 cm 3.0 - 4.0 / 2.7 - 3.8 cm LV Diastolic Volume MOD 4C 42.3 cm??? LV Systolic Volume MOD 4C 22.6 cm??? LV Ejection Fraction MOD 4C 46.5 % LV Cardiac Index MOD 4C 1209.4 cm???/min???m??? LV Diastolic Length 4C 6.5 cm LV Systolic Length 4C 5.5 cm LV Diastolic Volume MOD 2C 62.1 cm??? LV Systolic Volume MOD 2C 31.9 cm??? LV Ejection Fraction MOD 2C 48.7 % LV Cardiac Index MOD 2C 1862.7 cm???/min???m??? LV Diastolic Length 2C 7.2 cm LV Systolic Length 2C 6.1 cm LA Volume 33.7 cm??? 18 - 58 / 22 - 52 cm??? LA Volume Index 18.5 cm???/m??? 16 - 28 cm???/m??? M-MODE Aortic Root Diameter MM 2.5 cm DOPPLER AV Peak Velocity 106.8 cm/s AV Peak Gradient 4.6 mmHg MV Area PHT 2.6 cm??? Mitral E Point Velocity 51.9 cm/s Mitral A Point Velocity 102.6 cm/s Mitral E to A Ratio 0.5 MV Deceleration Time 292.8 ms TR Peak Velocity 202.6 cm/s TR Peak Gradient 16.4 mmHg Right Ventricular Systolic Press 21.4 mmHg FINDINGS Left Ventricle Left ventricular ejection fraction is estimated at 50-55 %. Small left ventricular cavity. No obvious regional wall motion abnormalities. Right Ventricle Normal right ventricular size and function. Right ventricular systolic pressure within normal limits. Right Atrium Normal right atrial size. No right atrial thrombus or mass seen. Anurysmal atrial septum Left Atrium Normal left atrial size. No left atrial thrombus or mass present. Mitral Valve Structurally normal mitral valve. No evidence for mitral valve prolapse. No mitral stenosis. Mild mitral regurgitation. Aortic Valve Trileaflet aortic valve. No aortic valve stenosis or regurgitation. Tricuspid Valve Structurally normal tricuspid valve. mild tricuspid regurgitation. Pulmonic Valve Structurally normal pulmonic valve. Trace pulmonic regurgitation. Pericardium No pericardial or pleural effusion. Aorta Normal size aortic root and proximal ascending aorta. CONCLUSIONS Patient was and what appears to be atrial flutter in the beginning of the study and subsequently converted to sinus mechanism Left ventricle systolic function borderline normal Mild mitral and tricuspid regurgitation Aneurysmal intra-atrial septum Previewed by: Dr. Deshaun Corley MD (Electronically Signed) Final Date: 10 June 2024 17:47
== END | disposition home or self-care (01) ==
LOC: RADECHMAIN 14:50
PROVIDERS: ATTEND Internal Medicine Geriatric Medicine
DX: R00.2 Palpitations
CPT/HCPCS: 93306

== ENCOUNTER → 2024-07-04 | Outpatient (CLI) | payer MEDICARE ==
--- NOTE | 2024-07-04 10:20 | MR ---
EXAMINATION TYPE: MR brain wo/w con DATE OF EXAM: 07/04/2024 COMPARISON: None HISTORY: Abnormal EEG, SOB, flutter in heart. TECHNIQUE: Multiplanar, multisequence images of the brain and brainstem is performed without and with IV contras t, utilizing 7 mL intravenous Gadavist . Findings: On the T1-weighted sagittal images, the midline structures including the craniovertebral junction rel ationships appear normal. The ventricles, basal cisterns and sulci over the convexities are within normal limits and there is n o mass effect or shift of midline structures No abnormal signal intensity is seen throughout the brain parenchyma. Based on diffusion-weighted jennifer ging, there is no diffusion restriction or acute ischemic event. Following contrast administration, there is no pathological enhancement. The posterior fossa including the brainstem, fourth ventricle and cerebellar pontine angles appear no rmal. Intraorbital contents are normal and symmetric. There is mild mucosal thickening in the left maxillar y sinus, the remaining paranasal sinuses and mastoid air cells are well aerated. IMPRESSION: 1. No mass, mass effect or pathological enhancement. 2. No acute ischemic event. 3. Mild chronic inflammatory changes in the left maxillary sinus. [facility], , 07/04/2024 10:18 AM
== END | disposition home or self-care (01) ==
LOC: RADMRIMAIN 05:38
PROVIDERS: ATTEND Internal Medicine Geriatric Medicine
DX: G45.9 Transient cerebral ischemic attack, unspecified (principal); J32.0 Chronic maxillary sinusitis
CPT/HCPCS: 70553; A9585

== ENCOUNTER → 2024-11-19 | Outpatient (CLI) | payer MEDICARE ==
[2024-11-19 16:06] LABS: HCT 42.4 % (37.2-46.3); HGB 14.3 g/dL (12.0-15.0); MCH 31.8 pg (27.0-32.0); MCHC 33.7 g/dL (32.0-37.0); MCV 94.2 FL (80.0-97.0); NRBC Per 100 WBC 0 X 10*3/uL (0.00-0.01); Platelet Count 313 X 10*3/uL (140-440); RDW 13.2 % (11.5-14.5)
[2024-11-19 17:06] LABS: ALT 17 U/L (8-44); AST 22 U/L (13-35); Albumin 4.2 g/dL (3.8-4.9); Albumin/Globulin Ratio 1.62 Ratio (1.60-3.17); Alkaline Phosphatase 196 U/L (41-126); BUN/Creat Ratio 15.78 Ratio (12.00-20.00); Blood Urea Nitrogen 14.2 mg/dL (9.0-27.0); Calcium 9.5 mg/dL (8.7-10.3); Carbon Dioxide 22.9 mmol/L (21.6-31.8); Chloride 103 mmol/L (96-109); Chol/HDL Ratio 2.22 Ratio; Globulin 2.6 g/dL (1.6-3.3); Glucose 99 mg/dL (70-110); LDL Cholesterol,Calculated 75.3 mg/dL (0.0-131.0); Potassium 4.2 mmol/L (3.5-5.5); Sodium 138 mmol/L (135-145); T4, Free (Free Thyroxine) 1.72 ng/dL (0.80-1.80); Total Bilirubin 0.4 mg/dL (0.3-1.2); Total Protein 6.8 g/dL (6.2-8.2); VLDL Calculation 13.64 mg/dL (5.00-40.00)
== END | disposition home or self-care (01) ==
LOC: LABWHC1 12:07
PROVIDERS: ATTEND Internal Medicine Clinical Cardiac Electrophysiology
DX: Z01.812 Encounter for preprocedural laboratory examination (principal); I48.92 Unspecified atrial flutter; I49.5 Sick sinus syndrome; E03.9 Hypothyroidism, unspecified; E78.2 Mixed hyperlipidemia
CPT/HCPCS: 36415; 80053; 80061; 84439; 84443; 85027

== ENCOUNTER 2024-12-04 11:31 | Day surgery (SDC) | payer MEDICARE ==
[2024-12-02 10:24] VITALS: BMI 24.5
[~2024-12-04 11:31] MED LIST changes: -ACETAMINOPHEN TAB 500 MG TAB PO PRN; +LACTATED RINGERS 1,000 ML IV SCH; -LIDOCAINE 1% (10MG/ML) FOR IV START INTRADERMA PRN; -MELOXICAM 7.5 MG TAB PO PRN; -MIDAZOLAM 2 MG/2 ML VIAL IV PRN; +SODIUM CHLORIDE 0.9% 1,000 ML IV SCH
[2024-12-04] MEDS: IV FLUID CONTINUATION 1,000 ML IV ONE (12:16)
[2024-12-04 12:19] VITALS: BP 142/65; PULSE 60; RESP 16; TEMP 97.8
[2024-12-04 12:52] LABS: ALT 18 U/L (4-34); AST 22 U/L (14-36); African American GFR (CKD) >90 (>60 ml/min/1.73 sqM); Albumin 4.4 g/dL (3.5-5.0); Alkaline Phosphatase 288 U/L (38-126); Anion Gap 8 mmol/L; Blood Urea Nitrogen 19 mg/dL (7-17); Calcium 9.5 mg/dL (8.4-10.2); Carbon Dioxide 27 mmol/L (22-30); Chloride 107 mmol/L (98-107); Glucose 106 mg/dL (74-99); Non-African American GFR(CKD) 82 (>60 ml/min/1.73 sqM); Potassium 4.2 mmol/L (3.5-5.1); Sodium 142 mmol/L (137-145); Total Bilirubin 0.5 mg/dL (0.2-1.3); Total Protein 7.1 g/dL (6.3-8.2)
[2024-12-04] MEDS: MIDAZOLAM 2 MG/2 ML VIAL IV ONE (13:07)
== END 2024-12-04 14:30 | disposition home or self-care (01) ==
LOC: CATHEP 11:31
PROVIDERS: ATTEND Internal Medicine Clinical Cardiac Electrophysiology
DX: R00.2 Palpitations (principal); Z53.9 Procedure and treatment not carried out, unspecified reason; I48.0 Paroxysmal atrial fibrillation; I48.92 Unspecified atrial flutter; I49.5 Sick sinus syndrome; F17.210 Nicotine dependence, cigarettes, uncomplicated; Z88.0 Allergy status to penicillin; Z79.82 Long term (current) use of aspirin; Z79.01 Long term (current) use of anticoagulants; E03.9 Hypothyroidism, unspecified
CPT/HCPCS: 86900; 86901; 80053; 84443; 86850; J2250

== ENCOUNTER 2024-12-08 05:46 | Day surgery (SDC) | payer MEDICARE ==
[2024-12-08] MEDS: IV FLUID CONTINUATION 1,000 ML IV ONE (06:20)
[2024-12-08] MEDS: SODIUM CHLORIDE 0.9% 1,000 ML IV SCH (06:20)
[2024-12-08] MEDS ORDERED: MIDAZOLAM 2 MG/2 ML VIAL IV PRN (07:00)
[2024-12-08] MEDS ORDERED: HYDROmorphone 0.5 MG/0.5 ML SYRINGE IVP PRN (07:00)
[2024-12-08] MEDS: MIDAZOLAM 2 MG/2 ML VIAL IV ONE (07:11)
[2024-12-08] MEDS ORDERED: MIDAZOLAM 2 MG/2 ML VIAL ONE (07:20)
[2024-12-08] MEDS ORDERED: LIDOCAINE 1% INJ 10MG/ML (20 ML MDV) ONE (07:20)
[2024-12-08] MEDS ORDERED: SUCCINYLCHOLINE CHLORIDE 200 MG/10 ML VIAL IV ONE (07:20)
[2024-12-08] MEDS ORDERED: GLYCOPYRROLATE 0.2 MG/ML 2 ML VIAL ONE (07:20)
[2024-12-08] MEDS ORDERED: ePHEDrine 50 MG/ML 1 ML VIAL ONE (07:20)
[2024-12-08] MEDS ORDERED: PHENYLEPHRINE-0.9% NACL SYG 1,000 MCG/10 ML SYRINGE ONE (07:20)
[2024-12-08] MEDS ORDERED: PROPOFOL 10 MG/ML 20 ML VIAL IV ONE (07:20)
[2024-12-08] MEDS ORDERED: SUGAMMADEX SODIUM 100 MG/ML SYR IV ONE (07:20)
[2024-12-08] MEDS ORDERED: ISOPROTERENOL 250 MCG/1.25 ML SYR IV ONE (07:20)
[2024-12-08] MEDS ORDERED: WATER FOR INJECTION, STERILE 10 ML VIAL IV ONE (07:20)
[2024-12-08] MEDS ORDERED: fentaNYL (PF) 50 MCG/ML 2 ML AMP ONE (07:20)
[2024-12-08] MEDS ORDERED: NEOSTIGMINE 1 MG/ML 10 ML VIAL ONE (07:20)
[2024-12-08] MEDS ORDERED: ROCURONIUM 10 MG/ML (5 ML VIAL) IV ONE (07:20)
[2024-12-08] MEDS: HEPARIN SODIUM (1,000 UNIT/ML) 1,000 UNIT in SODIUM CHLORIDE 0.9% 1,000 ML IRRIGATION ONE (07:30)
--- NOTE | 2024-12-08 07:55 | P.HPCAR ---
History of Present Illness This is Dr. Lyons dictating an H/P on this patient The patient was interviewed and examined IMPRESSION / ASSESSMENT: Recurrent palpitations with documented atrial flutter Long postconversion pauses associated with presyncope Sick sinus syndrome Dyslipidemia Hypothyroidism PLAN: Proceed with atrial flutter ablation Continue Pradaxa for 2 months and reevaluate CHADVASC score as an outpatient Follow-up with Dr. Doshi HPI Denies any chest pain orthopnea PND recently No syncope She has recurrent palpitations ROS: No fever chills or rigors, no cough, phlegm or expectoration, no nausea, vomiting or diarrhea, no hematuria, dysuria, no musculoskeletal complaints, no strokes or seizures, no skin lesions. EXAMINATION: 130/64 mmHg pulse rate in the 60s afebrile Heart sounds are normal and regular Breath sounds are clear Abdomen is soft No JVD REVIEW OF LABS, ECG & MEDICAL DATA Currently on Pradaxa 150 mg twice daily atorvastatin and Synthroid Physical Exam Vitals: Vital Signs Temp Pulse Resp BP Pulse Ox 12/08/24 06:57 98.1 F 64 14 130/64 100 Intake and Output 12/07/24 12/08/24 12/08/24 22:59 06:59 14:59 Intake Total 0 Balance 0 Intake: IV 0 Other: Weight 72.9 kg Past Medical History Past Medical History: Asthma, Osteoarthritis (OA), Thyroid Disorder Additional Past Medical History / Comment(s): POSITIVE COLOGARD History of Any Multi-Drug Resistant Organisms: None Reported Past Surgical History: Breast Surgery, Joint Replacement Additional Past Surgical History / Comment(s): left hip replacement; biopsy rt breast, colonoscopy, right knee arthroscopy, total right knee (jul 2022) Past Anesthesia/Blood Transfusion Reactions: Postoperative Nausea & Vomiting (PONV) Smoking Status: Former smoker - Past Family History Mother Family Medical History: Deep Vein Thrombosis (DVT) Physical Examination Vital Signs Temp Pulse Resp BP Pulse Ox 12/08/24 06:57 98.1 F 64 14 130/64 100 Intake and Output 12/07/24 12/08/24 12/08/24 22:59 06:59 14:59 Intake Total 0 Balance 0 Intake: IV 0 Other: Weight 72.9 kg Results Current Medications Generic Name Dose Route Start Last Admin Trade Name Freq PRN Reason Stop Dose Admin Hydromorphone HCl 0.5 mg 04/07/25 07:00 Hydromorphone 0.5 Mg/0.5 Ml Syringe IVP 12/08/24 23:00 Q5M PRN Phase 1 or 2 - Pain Control Sodium Chloride 1,000 mls @ 20 mls/hr 12/08/24 05:56 12/08/24 06:20 Saline 0.9% IV 01/07/25 05:55 20 mls/hr .Q24H CHARLY Administration Lactated Ringer's 1,000 mls @ 20 mls/hr 12/08/24 05:56 Lactated Ringers IV 01/07/25 05:55 .Q24H CHARLY Midazolam HCl 2 mg 12/08/24 07:00 Midazolam 2 Mg/2 Ml Vial IV 12/08/24 23:00 ONCE PRN Pre-Op Anxiety Intake and Output 12/07/24 12/08/24 12/08/24 22:59 06:59 14:59 Intake Total 0 Balance 0 Intake: IV 0 Other: Weight 72.9 kg
[2024-12-08] MEDS: LIDOCAINE 1% INJ 10MG/ML (20 ML MDV) SQ ONE (08:00)
[2024-12-08] MEDS: LACTATED RINGERS 1,000 ML IV ONE (09:00)
--- NOTE | 2024-12-08 10:02 | P.EPPROC ---
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 Written informed consent was obtained prior to the procedure. The right and left groins were prepped and draped as per protocol. IV antibiotic administered. Venous sheaths were placed in the right left femoral veins and via these diagnostic mapping and ablation catheters and a long sheath and intracardiac echo catheter placed Patient was in sinus rhythm at the start of the study. FL interval 168 ms, QRS 122 ms, QT 472 ms and sinus cycle length 1231 ms AH 104 and HV 46 ms Sinus node recovery times were 1126 and 1220 ms AV node Wenckebach block 440 ms High-dose Isopril started. No other SVT or atrial fibrillation induced Significant counterclockwise cardiac rotation. Mid to distal coronary sinus access was difficult. CS catheter was placed in the proximal coronary sinus for CS pacing and recording Intracardiac echo revealed a very short curved, cavotricuspid isthmus almost like one single pouch. The eustachian ridge was long and thick The tricuspid annulus was tagged The eustachian ridge was mapped with intracardiac echo. The entire isthmus was mapped Using the reverse loop technique, a complete line of block was made Isthmus conduction time 138 ms in both directions with bidirectional block with differential pacing Patient tolerated procedure well without any acute complications Venous sheaths were removed and closure devices applied
--- NOTE | 2024-12-08 10:08 | P.PRLE ---
RE: Sherley Guo Dear Papa Sherley underwent an EP study and successful ablation of atrial flutter. She has typical atrial flutter with long postconversion pauses associate with dizziness She should continue Pradaxa for the next 2 months uninterrupted She will follow-up with you and with Dr. Doshi as before Thank you for entrusting me with the care of the patient Warm regards Sincerely Med Lyons
[2024-12-08] MEDS: LACTATED RINGERS 1,000 ML IV SCH (14:55)
[2024-12-08] MEDS: DABIGATRAN 150 MG CAP PO SCH (20:58)
[2024-12-08] MEDS: lamoTRIgine 100 MG TAB PO SCH (20:59)
[2024-12-08] MEDS: DULoxetine HCL 60 MG CAPSULE.DR PO SCH (20:59)
[2024-12-08] MEDS: ACETAMINOPHEN IV (For NPO) 1,000 MG in EMPTY BAG 1 BAG IVPB ONE (21:00)
[2024-12-09] MEDS: ACETAMINOPHEN TAB 325 MG TAB PO PRN (00:45)
[2024-12-09] MEDS: LEVOTHYROXINE 100 MCG TAB PO SCH (06:15)
[2024-12-09] MEDS: buPROPion XL 150 MG TAB.ER.24H PO SCH (08:28)
[2024-12-09] MEDS: ATORVASTATIN 10 MG TAB PO SCH (08:28)
[2024-12-09 08:43] VITALS: BP 126/63; PULSE 69; RESP 16; TEMP 97.4
--- NOTE | 2024-12-09 10:56 | P.DS ---
Providers Attending physician: Med Lyons Primary care physician: [facility] Course: Patient underwent ablation for atrial flutter, typical. She had long postconversion pauses associated with resulting in presyncope Her cavotricuspid isthmus was short, almost like 1 single pouch, L shaped with a very long and thick eustachian ridge Successful ablation was performed. A complete line of block was made in the cavotricuspid isthmus She is doing well now heart sounds are normal breath sounds are clear No rhonchi no crackles She has no chest pain no dizziness no lightheadedness Groins have healed well. Minimal tenderness no swelling Impression Typical atrial flutter status post ablation Sick sinus syndrome with long postconversion pauses Plan Continue anticoagulation Discharge home today and follow-up with Dr. Doshi within 1 week Plan - Discharge Summary New Discharge Prescriptions: No Action Levothyroxine Sodium [Synthroid] 100 mcg PO DAILY DULoxetine HCL [Cymbalta] 60 mg PO BID Atorvastatin Calcium [Lipitor] 10 mg PO DAILY Albuterol Inhaler [Ventolin Hfa Inhaler] 1 - 2 puff INHALATION Q4HR PRN #1 each PRN Reason: Shortness Of Breath Metoprolol Succinate (ER) [Toprol Xl] 25 mg PO DAILY lamoTRIgine [LaMICtal] 100 mg PO BID buPROPion HCL [buPROPion HCL XL] 150 mg PO DAILY Dabigatran [Pradaxa] 150 mg PO BID Discharge Medication List Levothyroxine Sodium [Synthroid] 100 mcg PO DAILY 05/20/14 [History] Atorvastatin Calcium [Lipitor] 10 mg PO DAILY 04/26/20 [History] DULoxetine HCL [Cymbalta] 60 mg PO BID 04/26/20 [History] Albuterol Inhaler [Ventolin Hfa Inhaler] 1 - 2 puff INHALATION Q4HR PRN #1 each 11/07/23 [Rx] Dabigatran [Pradaxa] 150 mg PO BID 12/02/24 [History] Metoprolol Succinate (ER) [Toprol Xl] 25 mg PO DAILY 12/02/24 [History] buPROPion HCL [buPROPion HCL XL] 150 mg PO DAILY 12/02/24 [History] lamoTRIgine [LaMICtal] 100 mg PO BID 12/02/24 [History] Follow up Appointment(s)/Referral(s): Omer oDshi MD [Medical Doctor] - 12/23/24 2:45 pm Patient Instructions/Handouts: Cardiac Ablation (DC), Electrophysiology Study (DC) Activity/Diet/Wound Care/Special Instructions: Post EP study - Ablation instructions 1. Keep access sites dry for 2 days. 2. No heavy lifting or straining for 2 days. 3. Avoid bending the hips repeatedly for 2 days. 4. You may go up and down stairs slowly 5. If you have had an ablation for atrial fibrillation or atrial flutter and are on a blood thinner, do not stop the blood thinner even temporarily for 3 mon ths post ablation Call if the following is noted 1. Bleeding, increasing swelling or pain at the access sites. 2. Increasing chest discomfort, especially upon taking a deep breath. 3. Increasing shortness of breath, at rest or with exertion. 4. Undue cough / phlegm 5. Difficulty or pain while swallowing. 6. Pain or change in color in the extremities. 7. Fever, chills, rigors. 8. Increasing headache or neurologic symptoms. 9. Dizziness, fainting, palpitations For patients who have undergone an A-fib ablation /atrial flutter ablation Strict instruction; do NOT stop anticoagulation (Eliquis/Xarelto/Pradaxa) for the next 2 months temporarily, for any elective, nonurgent surgery. This increases the risk of stroke, post A-fib ablation Discharge Disposition: HOME SELF-CARE
== END 2024-12-09 09:10 | disposition home or self-care (01) ==
LOC: CATHEP 05:46 → 6NMEDSUR 09:25 → CATHEP 12-09 09:10
PROVIDERS: ATTEND Internal Medicine Clinical Cardiac Electrophysiology
DX: I48.4 Atypical atrial flutter (principal); R00.2 Palpitations; I49.5 Sick sinus syndrome; E78.5 Hyperlipidemia, unspecified; E03.9 Hypothyroidism, unspecified; Z79.01 Long term (current) use of anticoagulants; Z79.02 Long term (current) use of antithrombotics/antiplatelets; Z87.891 Personal history of nicotine dependence
CPT/HCPCS: 93623; 93662; 93653; 86900; 86901; 86850; C1759; C1894; C1769; C1760 ×2; C1730; C1893; C1732; J2250; J2003; J1644